=== PATIENT | female | born 1945 | race Caucasian/White ===

== ENCOUNTER 2020-04-07 14:49 | Outpatient (CLI) | payer MEDICARE, SELFPAY ==
[2020-04-07 17:56] LABS: Basophils # 0.2 10^3/uL (0.0-0.1); Basophils % 1.3 %; Eosinophils # 0.4 10^3/uL (0.0-0.8); Eosinophils % 3.7 %; Hematocrit 55.7 % (37.0-47.0); Lymphocytes # 3.6 10^3/uL (0.8-4.8); Lymphocytes % 29.5 %; Mean Corpuscular HGB Conc 30.5 g/dL (30.0-36.0); Mean Corpuscular Hemoglobin 27.9 pg (28.0-34.0); Mean Corpuscular Volume 91.3 fL (81-99); Mean Platelet Volume 11.3 fL (7.4-10.4); Monocytes # 1.1 10^3/uL (0.2-0.9); Monocytes % 9.5 %; Neutrophils # 6.68 10^3/uL (1.8-7.7); Neutrophils % 55.3 %; Nucleated Red Blood Cells % 0.2 %; Platelet Count 758 10^3/cmm (130-400); Red Cell Distribution Width 18.5 % (12.1-15.1); White Blood Count 12.1 10^3/uL (4.0-10.0)
[2020-04-07 18:11] LABS: Alanine Aminotransferase 17 U/L (0-33); Albumin Level 4.2 g/dL (3.5-5.2); Alkaline Phosphatase 81 IU/L (35-105); Anion Gap 15.2 (5-19); Aspartate Amino Transferase 22 U/L (0-32); Blood Urea Nitrogen 20 mg/dL (8-23); Calcium 9.5 mg/dL (8.5-10.5); Carbon Dioxide 25 mmol/L (22-29); Chloride 106 mmol/L (98-107); Globulin 3.1 g/dL (1.3-4.6); Glucose 84 mg/dL (65-115); Osmolality Calculated 290 mOsm/kg (285-295); Potassium 4.2 mmol/L (3.5-5.1); Sodium 142 mmol/L (136-145); Total Bilirubin 0.2 mg/dL (0.15-1.2); Total Protein 7.3 g/dL (6.6-8.7); Uric Acid 3.4 mg/dL (2.4-5.7)
--- NOTE | 2020-04-07 18:39 | ONC CON_ITS ---
Dr. Oliver New Patient Note Patient: Jessi Williamson Unit #: [id number]: 1945 Dicatated By: Howard Oliver M.D.Date of Visit: Apr 07, 2020 Onc MED New Patient/Consult Referring Physician: AYAAN Dunn Chief Complaint: Polycythemia. History of Present Illness: This is a 70 year-old woman with known polycythemia rubra vera. The patient indicates that her polycythemia was initially diagnosed about 2 1/2 years ago when she had presented with an acute right hemispheric stroke. According to her , her platelet count was around 2.4 million. She was treated with hydroxyurea, and she also had multiple phlebotomies. She indicates that she had a total of 12 strokes. I do not have any of those records available. However, she had then stopped taking the hydroxyurea and some of her other medications 6 or 7 months ago because she just was not feeling good generally. She has been feeling much better after stopping the medications. However, on a follow-up visit on 03/03/2020 her CBC showed significantly elevated blood counts with hemoglobin 17.2 g and hematocrit 55%, white blood cell count 16,300, and platelet count 810,000. Comprehensive metabolic profile at that time showed normal renal function with BUN 17 and creatinine 0.89 mg/dL. The potassium was slightly elevated at 5.2 mmol/L. The bilirubin and liver enzymes were normal. She was recommended to restart the hydroxyurea at 1500 mg daily. She actually started taking it 1 week ago at 1000 mg daily. She also has been taking allopurinol 300 mg daily. She says she has been feeling really good, though she does get tired. She has pretty much normal activity. Her ECOG score is 0. She has good appetite and her weight is been stable. She does not have fever, night sweats, or hot flashes. She had antibiotic therapy for sinus infection about a month ago. She indicates that her voice has been hoarse for the past 3 weeks. She does not complain of shortness of breath or cough. She sometimes has a little pressure in her chest. She has not been having nausea. She has occasional acid reflux. She also reports having occasional diarrhea. She has urinary frequency and nocturia, and she also has some urgency with occasional incontinence. She has no significant joint or bone pain, but recently she has been having muscle cramps in her legs. She does not complain of headache or dizziness. She has no focal neurologic symptoms. She has had a sore on her right foot, initially treated with antibiotic. More recently she was prescribed a steroid cream. She has not been aware of any abnormal bruising or bleeding. Past Medical History: Her medical history includes anxiety, aortic thrombus, hyperlipidemia, hypertension, multiple pulmonary nodules, osteoarthritis, osteoporosis, and restless leg syndrome. She has history of basal cell skin cancer, history of colon polyps, history of multiple strokes, and history of pulmonary embolism. Past Surgical History: Her surgical/procedural history includes appendectomy, cholecystectomy, hysterectomy/bilateral salpingectomy-oophorectomy, splenectomy, and tubal ligation. Medications: Allopurinol 1 Tablet (of 300 mg) Oral daily, Amoxicillin 1 Capsule (of 500 mg) Oral daily, Hydroxyurea 3 Capsule (of 500 mg) Oral daily, Lidocaine 1 (5 %) Ointment Topical b.i.d. Allergies: adhesive, Morphine Sulfate, and Simvastatin. Social History: Ms. Williamson is and she is retired. She is a non-smoker. She does not drink alcohol. Family History: Both parents with heart disease, father at age 75 and mother at age 85. A brother with metastatic cancer, primary source unknown to the patient. A sister of liver cancer. Her other sister has had skin cancer. A daughter has been treated for colon cancer. Review Of Symptoms: Constitutional - She has been feeling really good her energy is good but she does have to rest in the middle of the day. She has normal activity without restrictions. Her appetite is good and weight is stable. No fever, night sweats, or hot flashes. ECOG score is 0, Eyes - No change in vision, ENMT - No hearing loss or tinnitus. She was recently treated for sinus congestion/drainage with antibiotics. No mouth sores. No sore throat or difficulty swallowing. She has been having hoarseness for 3 weeks, Hematologic/Lymphatic - No abnormal bruising or bleeding, Respiratory - No shortness of breath. No cough. No pleuritic pain or hemoptysis, Cardiovascular - She sometimes has a little pressure in her chest. No palpitations, Gastrointestinal - No nausea or vomiting. She has occasional acid reflux depending on what she eats. No diarrhea or constipation. No blood in the stool or black stools, Genitourinary (F) - No dysuria or hematuria. She has urinary frequency both day and night. She has urgency with occasional incontinence, Musculoskeletal - She has no significant joint or bone pain, but she does have osteoporosis. She recently has been having muscle cramps in her legs, Integumentary - She has a skin eruption on the right ankle/foot, Neurologic - No headache or dizziness. No numbness or tingling. No other focal neurologic symptoms, Psychiatric - No anxiety or depression. No insomnia. Vital Signs: Performed on Apr 07, 2020 15:33: 0, 33.29 (HIGH), 1.84 sq.m, 62.00 in, 99 %, 85 /min, 24 /min, 158/99 mm(hg) (HIGH), 98.0 F (LOW), and 182.0 lbs (HIGH). Physical Examination: Constitutional - She looks pretty good generally, Eyes - Sclerae nonicteric. Conjunctivae clear, ENMT - No lesions noted in the oral cavity, Neck - No mass or thyromegaly, Hematologic/Lymphatic - No cervical, clavicular, or axillary adenopathy, Respiratory - Lungs are clear with good air movement bilaterally, Cardiovascular - Heart rhythm is regular. There is no murmur, gallop, or rub noted. There is no carotid bruit noted, Abdomen - Soft and non-tender. Liver is not enlarged. There is no abdominal mass or ascites noted and there is no inguinal adenopathy, Back/Spine - No spine or CVA tenderness noted, Extremities - Mild swelling at the ankles, worse on the right. The calf circumference is symmetric. Dorsalis pedis pulses are palpable bilaterally. There are scattered, small purpuric lesions on the arms, Integumentary - There is some patchy erythema on the lateral aspect of the right ankle and on the medial aspect of the right foot. It appears consistent with eczema. There are no suspicious skin lesions noted, Neurologic - She does not appear to have any significant residual neurologic deficit. Impression: 1. Patient with polycythemia rubra vera, initially diagnosed approximately 2-1/2 years ago. She had presented with an acute right hemispheric stroke in association with a markedly elevated platelet count. 2. She was treated initially with hydroxyurea and phlebotomies, and she had good recovery of her neurologic deficit. 3. She presents now with pancytosis after stopping hydroxyurea 6 or 7 months ago. She does not appear to be symptomatic with it. Her other medical illnesses include: 4. Hypertension. 5. Hyperlipidemia. 6. Degenerative arthritis. 7. Osteoporosis. 8. Restless leg syndrome. 9. She has undergone removal of basal cell skin cancer from the left leg, and she has been treated for actinic keratoses. 10. She reports having had multiple subsequent strokes. 11. She has a history of pulmonary embolism. 12. She has a history of colonic polyps. 13. She has remote history of splenectomy for traumatic injury. Plan: The laboratory findings were reviewed with the patient and we discussed the clinical implications. Her blood counts have become elevated since stopping the hydroxyurea, and if left untreated she will have a high risk for further stroke or other thromboembolism. She has been reluctant to take the medication because she felt much better after stopping it. She is willing, for now, to continue the hydroxyurea at 1000 mg daily and she also will continue the allopurinol at 300 mg daily. I did advise her to also take 81 mg of aspirin daily as long she is not having excessive bruising. I will recheck her laboratory studies today to include CBC, comprehensive metabolic profile, LDH level, and uric acid level. I also want to verify the JAK2 gene mutation status. I will then have her monitor blood counts weekly. The hydroxyurea dosage can be adjusted accordingly and I also will have her restart phlebotomies as indicated. If he does not tolerate the hydroxyurea, she will be given the option to try transitioning to ruxolitinib. I will tentatively plan a follow-up visit in 1 month. In the meantime, she also will be given a prescription for furosemide 20 mg daily to take as needed for the swelling. Signed By: Howard Oliver M.D. <<Signature on File>>
[2020-04-07 20:36] LABS: Lactate Dehydrogenase 310 U/L (135-214)
== END 2020-04-07 14:50 | disposition home or self-care (01) ==
LOC: ONCMED 15:03
PROVIDERS: PCP Family Medicine; Visit Provider Internal Medicine Medical Oncology
DX: D45 Polycythemia vera (principal); M25.471 Effusion, right ankle; M25.472 Effusion, left ankle; I10 Essential (primary) hypertension; E78.5 Hyperlipidemia, unspecified; M19.90 Unspecified osteoarthritis, unspecified site; M81.0 Age-related osteoporosis without current pathological fracture; G25.81 Restless legs syndrome; Z79.899 Other long term (current) drug therapy; Z85.828 Personal history of other malignant neoplasm of skin; Z86.73 Personal history of transient ischemic attack (TIA), and cerebral infarction without residual deficits; Z86.711 Personal history of pulmonary embolism; Z90.81 Acquired absence of spleen
CPT/HCPCS: 36415; 80053; 81270; 83615; 84550; 85025; 99205

== ENCOUNTER 2020-04-15 13:33 | Outpatient (CLI) | payer MEDICARE, SELFPAY ==
[2020-04-15 14:16] LABS: Basophils # 0.1 10^3/uL (0.0-0.1); Basophils % 1.2 %; Eosinophils # 0.3 10^3/uL (0.0-0.8); Eosinophils % 2.9 %; Hematocrit 54.4 % (37.0-47.0); Hemoglobin 16.9 g/dL (11.5-15.3); Lymphocytes # 3.7 10^3/uL (0.8-4.8); Lymphocytes % 32.9 %; Mean Corpuscular HGB Conc 31.1 g/dL (30.0-36.0); Mean Corpuscular Hemoglobin 28.4 pg (28.0-34.0); Mean Corpuscular Volume 91.3 fL (81-99); Monocytes # 0.8 10^3/uL (0.2-0.9); Monocytes % 6.7 %; Neutrophils # 6.27 10^3/uL (1.8-7.7); Neutrophils % 55.9 %; Nucleated Red Blood Cells % 0.4 %; Platelet Count 873 10^3/cmm (130-400); Red Blood Count 5.96 10^6/uL (4.1-5.3); Red Cell Distribution Width 19.3 % (12.1-15.1); White Blood Count 11.2 10^3/uL (4.0-10.0)
== END 2020-04-15 13:34 | disposition home or self-care (01) ==
LOC: ONCMED 13:37
PROVIDERS: PCP Family Medicine; Visit Provider Internal Medicine Medical Oncology
DX: D45 Polycythemia vera (principal); E78.5 Hyperlipidemia, unspecified; I10 Essential (primary) hypertension
CPT/HCPCS: 36415; 85025; 99195

== ENCOUNTER 2020-04-27 12:42 | Outpatient (CLI) | payer MEDICARE, SELFPAY ==
--- NOTE | 2020-04-27 12:50 | XRR_ITS ---
PROCEDURE INFORMATION: Exam: XR Right Foot Complete Exam date and time: 04/27/2020 1:14 PM Age: 75 years old Clinical indication: Pain; Patient HX: Sore on right foot TECHNIQUE: Imaging protocol: XR Right foot. Views: 3 or more views. COMPARISON: No relevant prior studies available. FINDINGS: Bones/joints: There is no evidence for acute fracture or malalignment. There is an osteophyte off the posterior calcaneus. Soft tissues: Normal. XR/XR foot RT min 3V* [id number] IMPRESSION: There are no acute concerning abnormalities.
== END 2020-04-27 12:43 | disposition home or self-care (01) ==
PROVIDERS: PCP Family Medicine; Visit Provider Podiatrist Foot & Ankle Surgery
DX: M79.671 Pain in right foot (principal)
CPT/HCPCS: 73630

== ENCOUNTER 2020-05-12 13:54 | Outpatient (CLI) | payer MEDICARE, SELFPAY ==
[2020-05-12] MEDS: sodium chloride 0.9% 500 ML IV (15:35)
[2020-05-12 15:52] LABS: Blood Urea Nitrogen 16 mg/dL (8-23); Calcium 8.7 mg/dL (8.5-10.5); Carbon Dioxide 23 mmol/L (22-29); Chloride 104 mmol/L (98-107); Glucose 114 mg/dL (65-115); Osmolality Calculated 281 mOsm/kg (285-295); Sodium 137 mmol/L (136-145)
[2020-05-12 15:53] LABS: Anion Gap 14.4 (5-19); Potassium 4.4 mmol/L (3.5-5.1)
--- NOTE | 2020-05-16 13:12 | ONC FU_ITS ---
Dr. Oliver Patient Follow-Up Note Patient: Jessi Williamson Unit #: [id number]: 1945 Dicatated By: Howard Oliver M.D.Date of Visit:May 12, 2020 Onc Med Follow-up/Prog Note Chief Complaint: Polycythemia. 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 I had seen her initially on 04/07/2020. Her polycythemia had been diagnosed about 2 1/2 earlier when she had presented with an acute right hemispheric stroke. According to her , her platelet count was around 2.4 million. She was treated with hydroxyurea, and she also had multiple phlebotomies. She apparently had multiple strokes during that time. However, approximately 6-7 months prior to the visit she had stopped taking the hydroxyurea and some of her other medications because she just was not feeling good generally. She had been feeling much better after stopping the medications. However, a CBC on 03/03/2020 had shown significantly elevated blood counts with hemoglobin 17.2 g and hematocrit 55%, white blood cell count 16,300, and platelet count 810,000. Comprehensive metabolic profile at that time showed normal renal function with BUN 17 and creatinine 0.89 mg/dL. The potassium was slightly elevated at 5.2 mmol/L. The bilirubin and liver enzymes were normal. She was recommended to restart the hydroxyurea at 1500 mg daily. At the time of her visit in March she had been taking the hydroxyurea for 1 week at a dose of 1000 mg daily. She also had been taking allopurinol 300 mg daily. Her CBC showed hemoglobin elevated at 17.0 g with hematocrit 55.7%. The white blood cell count was 12,100 and the platelet count was 758,000. Her LDH was mildly elevated at 310/214 U/L. Her JAK2 mutation study was positive for the JAK2 V617F mutation. She continued hydroxyurea at 1000 mg daily, and she was scheduled to have a phlebotomy. Her other medical illnesses include hypertension, anemia, degenerative arthritis, osteoporosis, and restless leg syndrome. She has a history of pulmonary embolism and she also has a history of colonic polyps. She has remote history of having undergone splenectomy for traumatic injury. She is a non-smoker. She is seen for a follow-up visit. She says she has been sick for 3 weeks, to point that she is almost too weak to get out of bed. During that time she has had lower back pain and she also has had pain in the substernal area. Her ECOG score is 3. She says she cannot eat very much. Her weight is down 7 pounds. She has not had fever or night sweats. She has not had sore mouth or sore throat. She does report having a slight cough and she has had some shortness of breath. She does not complain of nausea. She has had some diarrhea. She has urinary frequency and nocturia. She has no other joint or bone pain. She does not complain of headache or dizziness. She has no focal neurologic symptoms. Medications: Allopurinol 1 Tablet (of 300 mg) Oral daily, Hydroxyurea 3 Capsule (of 500 mg) Oral daily, Lasix 1 Tablet (of 20 mg) Oral PRN, Lidocaine 1 (5 %) Ointment Topical b.i.d. Allergies: adhesive, Morphine Sulfate, and Simvastatin. Review of Systems: Constitutional - She has not been feeling good for the last 3 weeks. She is mostly laying in bed. Her appetite is poor and her weight is down 7 pounds from last visit. No fever, night sweats, or hot flashes. ECOG score is 3, ENMT - No sinus congestion/drainage. No mouth sores. No sore throat or difficulty swallowing, Hematologic/Lymphatic - No abnormal bruising or bleeding, Respiratory - She feels short of breath. She has a slight cough. No pleuritic pain or hemoptysis, Cardiovascular - No angina pain. No palpitations, Gastrointestinal - No nausea or vomiting. No heartburn or acid reflux. She has had diarrhea. No constipation. No blood in the stool or black stools, Genitourinary (F) - No dysuria or hematuria. She has urinary frequency both day and night. No urgency or incontinence, Musculoskeletal - She has some lower back pain. No other joint or bone pain, Integumentary - No skin complications, Neurologic - No headache or dizziness. No numbness or tingling. No other focal neurologic symptoms, Psychiatric - No anxiety or depression. No insomnia. Vital Signs: Performed on May 12, 2020 14:04 Height - 62.00 in Weight - 175.2 lbs (LOW) BSA - 1.81 sq.m BMI - 32.04 (HIGH) Temperature - 98.2 F (LOW) Pulse - 108 /min (HIGH) Respiration - 18 /min BP - 143/87 mm(hg) (HIGH) O2 Sat - 93 % (LOW) Pain - 4 Physical Examination: Constitutional - She appears generally weak, but not acutely ill, Eyes - Sclerae nonicteric. Conjunctivae clear, ENMT - No lesions noted in the oral cavity, Hematologic/Lymphatic - No cervical, clavicular, or axillary adenopathy, Respiratory - Lungs are clear with good air movement bilaterally, Cardiovascular - Heart rhythm is regular. There is no murmur, gallop, or rub noted, Abdomen - Soft. Liver is not enlarged. There is no abdominal mass or ascites noted and there is no inguinal adenopathy, Extremities - No edema, Neurologic - No focal neurologic deficits noted. Lab/Imaging: Test performed on May 10, 2020 10:18 WBC 8.8 10^9/L RBC 5.84 10^12/L HGB 16.8 g/dL HCT 57.6 % MCV 98.6 fl MCH 28.8 pg MCHC 29.2 g/dL RDW 25.1 % Platelet Count 509 10^9/L MPV 11.7 fL Neutrophils (Gran) 4.59 10^9/L Lymphocytes 2.69 10^9/L Monocytes 1.30 10^9/L Eosinophils 0.08 10^9/L Basophils 0.09 10^9/L Manual Lymphocytes 31 % Manual Monocytes 15 % Manual Eosinophils 1 % Manual Basophils 1 % Impression: 1. Patient with polycythemia rubra vera, initially diagnosed approximately 2-1/2 years ago. She had presented with an acute right hemispheric stroke in association with a markedly elevated platelet count. 2. She was treated initially with hydroxyurea and phlebotomies, and she had good recovery of her neurologic deficit. 3. She was seen in March 2020 with pancytosis after stopping hydroxyurea 6 or 7 months earlier. She did not appear to be overtly symptomatic at that time. Her other medical illnesses include: 4. Hypertension. 5. Hyperlipidemia. 6. Degenerative arthritis. 7. Osteoporosis. 8. Restless leg syndrome. 9. She has undergone removal of basal cell skin cancer from the left leg, and she has been treated for actinic keratoses. 10. She reports having had multiple subsequent strokes. 11. She has a history of pulmonary embolism. 12. She has a history of colonic polyps. 13. She has remote history of splenectomy for traumatic injury. Following her visit on 04/07/2020 she had initially continued hydroxyurea at 1000 mg daily. She was scheduled for a phlebotomy, and the hydroxyurea dosage was subsequently increased to 1500 mg daily. She has since then been feeling much worse generally with severe weakness and lower back pain. She is also had some pain in the substernal area and she has had shortness of breath with a slight cough. She also has had diarrhea. It is uncertain to what extent any of these symptoms may be related to the polycythemia or to the hydroxyurea. She does not have any changes on her EKG, and she had no significant drop in her oxygen saturation with activity. Plan: She is going to have a phlebotomy today, and she will be given 500 mL normal saline for hydration. She will continue hydroxyurea at 1500 mg daily and she will continue aspirin prophylaxis. She will be scheduled for a follow-up visit in 1 week. Signed By: Howard Oliver M.D. <<Signature on File>>
== END 2020-05-12 13:55 | disposition home or self-care (01) ==
LOC: ONCMED 13:57
PROVIDERS: PCP Family Medicine; Visit Provider Internal Medicine Medical Oncology
DX: D45 Polycythemia vera (principal); R05 Cough; R06.02 Shortness of breath; R19.7 Diarrhea, unspecified; Z79.899 Other long term (current) drug therapy; Z86.73 Personal history of transient ischemic attack (TIA), and cerebral infarction without residual deficits; Z79.82 Long term (current) use of aspirin; I10 Essential (primary) hypertension; E78.5 Hyperlipidemia, unspecified; M19.90 Unspecified osteoarthritis, unspecified site; M81.0 Age-related osteoporosis without current pathological fracture; G25.81 Restless legs syndrome; Z85.828 Personal history of other malignant neoplasm of skin; Z86.711 Personal history of pulmonary embolism; Z90.81 Acquired absence of spleen
CPT/HCPCS: 80048; 99195; 99214; J7040

== ENCOUNTER 2020-06-21 08:11 | Outpatient (CLI) | payer MEDICARE, MEDICAID, SELFPAY ==
[2020-06-21 09:12] LABS: Basophils # 0.1 10^3/uL (0.0-0.1); Basophils % 0.8 %; Eosinophils # 0.1 10^3/uL (0.0-0.8); Eosinophils % 1.5 %; Hematocrit 43.5 % (37.0-47.0); Hemoglobin 14.1 g/dL (11.5-15.3); Lymphocytes # 2.7 10^3/uL (0.8-4.8); Lymphocytes % 43.1 %; Mean Corpuscular HGB Conc 32.4 g/dL (30.0-36.0); Mean Corpuscular Hemoglobin 32.5 pg (28.0-34.0); Mean Corpuscular Volume 100.2 fL (81-99); Mean Platelet Volume 10.6 fL (7.4-10.4); Monocytes # 0.7 10^3/uL (0.2-0.9); Neutrophils % 42.1 %; Nucleated Red Blood Cells % 0.3 %; Platelet Count 438 10^3/cmm (130-400); Red Blood Count 4.34 10^6/uL (4.1-5.3); Red Cell Distribution Width 27.4 % (12.1-15.1); White Blood Count 6.2 10^3/uL (4.0-10.0)
--- NOTE | 2020-06-22 06:55 | ONC FU_ITS ---
Dr. Oliver Patient Follow-Up Note Patient: Jessi Williamson Unit #: [id number]: 1945 Dicatated By: Howard Oliver M.D.Date of Visit:Jun 21, 2020 Onc Med Follow-up/Prog Note Chief Complaint: Polycythemia. 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 I had seen her initially on 04/07/2020. Her polycythemia had been diagnosed about 2 1/2 earlier when she had presented with an acute right hemispheric stroke. According to her , her platelet count was around 2.4 million. She was treated with hydroxyurea, and she also had multiple phlebotomies. She apparently had multiple strokes during that time. However, approximately 6-7 months prior to the visit she had stopped taking the hydroxyurea and some of her other medications because she just was not feeling good generally. She had been feeling much better after stopping the medications. However, a CBC on 03/03/2020 had shown significantly elevated blood counts with hemoglobin 17.2 g and hematocrit 55%, white blood cell count 16,300, and platelet count 810,000. Comprehensive metabolic profile at that time showed normal renal function with BUN 17 and creatinine 0.89 mg/dL. The potassium was slightly elevated at 5.2 mmol/L. The bilirubin and liver enzymes were normal. She was recommended to restart the hydroxyurea at 1500 mg daily. At the time of her visit in March she had been taking the hydroxyurea for 1 week at a dose of 1000 mg daily. She also had been taking allopurinol 300 mg daily. Her CBC showed hemoglobin elevated at 17.0 g with hematocrit 55.7%. The white blood cell count was 12,100 and the platelet count was 758,000. Her LDH was mildly elevated at 310/214 U/L. Her JAK2 mutation study was positive for the JAK2 V617F mutation. She continued hydroxyurea at 1000 mg daily, and she was scheduled to have a phlebotomy. Her other medical illnesses include hypertension, anemia, degenerative arthritis, osteoporosis, and restless leg syndrome. She has a history of pulmonary embolism and she also has a history of colonic polyps. She has remote history of having undergone splenectomy for traumatic injury. She is a non-smoker. INTERIM HISTORY: I had seen her for a follow-up visit on 05/12/2020. At that time she had multiple new complaints and she was pretty ill. I was uncertain of the cause. Her blood count was still significantly elevated, and she did have a phlebotomy. The following day she was informed that a COVID test which had been done by her primary care provider a day earlier came back positive. Her symptoms at that time had included diarrhea for several weeks, and she apparently also was found to have E. coli enteritis. She did show gradual recovery with antibiotic therapy and supportive measures. She continued hydroxyurea. She is seen now for a follow-up visit. She is feeling much better. She still has some fatigue, but her energy is getting better, and she is doing light work now. ECOG score is 1. Her appetite is good. She has regained 9 pounds. She has not had fever. She occasionally feels hot and sweaty. Her breathing is pretty good. She occasionally has cough, mainly when she is lying down at night. She does not complain of nausea. She sometimes has acid reflux. Her bowels are pretty good, though she still occasionally has loose stools and abdominal cramping. She has urinary frequency and urgency, and she has some associated incontinence. She has no significant joint or bone pain. She has no focal neurologic symptoms. Medications: Allopurinol 1 Tablet (of 300 mg) Oral daily, Hydroxyurea 3 Capsule (of 500 mg) Oral daily, Lasix 1 Tablet (of 20 mg) Oral PRN, Lidocaine 1 (5 %) Ointment Topical b.i.d. Allergies: adhesive, Morphine Sulfate, and Simvastatin. Review of Systems: Constitutional - She is feeling pretty good now. Her energy is getting better. She still has some fatigue, but she is doing light work. Her appetite is good. She has regained 9 pounds. She has not had fever. She occasionally feels hot and sweaty. ECOG score is 1, ENMT - She has a little sinus drainage. No mouth sores. No sore throat or difficulty swallowing, Hematologic/Lymphatic - No abnormal bruising or bleeding, Respiratory - Her breathing is pretty good. She does have occasional cough, mainly when she is lying down at night. No pleuritic pain or hemoptysis, Cardiovascular - No angina pain. No palpitations, Gastrointestinal - No nausea or vomiting. She sometimes has acid reflux. She still occasionally has loose stools and she occasionally has abdominal cramping. No blood in the stool or black stools, Genitourinary (F) - No dysuria or hematuria. She has urinary frequency and urgency and she has associated incontinence, Musculoskeletal - No joint or bone pain, Integumentary - No skin rash, Neurologic - No headache or dizziness. No numbness or tingling. No other focal neurologic symptoms, Psychiatric - No anxiety or depression. She is not sleeping very well at night. Vital Signs: Performed on Jun 21, 2020 10:32 Height - 62.00 in Weight - 179.0 lbs (HIGH) BSA - 1.82 sq.m BMI - 32.74 (HIGH) Temperature - 97.4 F (LOW) Pulse - 101 /min (HIGH) Respiration - 18 /min BP - 171/78 mm(hg) (HIGH) O2 Sat - 97 % Pain - 0 Physical Examination: Constitutional - She looks pretty good generally, Eyes - Sclerae nonicteric. Conjunctivae clear, ENMT - No lesions noted in the oral cavity, Hematologic/Lymphatic - No cervical, clavicular, or axillary adenopathy, Respiratory - Lungs are clear with good air movement bilaterally, Cardiovascular - Heart rhythm is regular. There is no murmur, gallop, or rub noted, Abdomen - Soft. Liver is not enlarged. There is no abdominal mass or ascites noted and there is no inguinal adenopathy, Extremities - No edema, Integumentary - She is fair skinned. She has multiple seborrheic keratoses and she also appears to have a few actinic lesions, Neurologic - No focal neurologic deficits noted. Lab/Imaging: Test performed on Jun 21, 2020 08:26 WBC 6.2 10 3/uL RBC 4.34 10 6/uL HGB 14.1 g/dL HCT 43.5 % MCV 100.2 fL MCH 32.5 pg MCHC 32.4 g/dL RDW 27.4 % Platelet Count 438 10 3/cmm MPV 10.6 fL Neutrophils 2.60 10 3/uL Lymphocytes 2.7 10 3/uL Monocytes 0.7 10 3/uL Eosinophils 0.1 10 3/uL Basophils 0.1 10 3/uL Neutrophil % 42.1 % Lymphocyte % 43.1 % Monocyte % 12.0 % Eosinophil % 1.5 % Basophils % 0.8 % NRBC % 0.3 % Impression: 1. Patient with polycythemia rubra vera, initially diagnosed approximately 2-1/2 years ago. She had presented with an acute right hemispheric stroke in association with a markedly elevated platelet count. 2. She was treated initially with hydroxyurea and phlebotomies, and she had good recovery of her neurologic deficit. 3. She was seen in March 2020 with pancytosis after stopping hydroxyurea 6 or 7 months earlier. She did not appear to be overtly symptomatic at that time. Her other medical illnesses include: 4. Hypertension. 5. Hyperlipidemia. 6. Degenerative arthritis. 7. Osteoporosis. 8. Restless leg syndrome. 9. She has undergone removal of basal cell skin cancer from the left leg, and she has been treated for actinic keratoses. 10. She reports having had multiple subsequent strokes. 11. She has a history of pulmonary embolism. 12. She has a history of colonic polyps. 13. She has remote history of splenectomy for traumatic injury. Following her visit on 04/07/2020 she had initially continued hydroxyurea at 1000 mg daily. She was scheduled for a phlebotomy, and the hydroxyurea dosage was subsequently increased to 1500 mg daily. At her follow-up visit on 05/12/2020 she had multiple complaints, and she was quite ill at that point. Her blood counts were still significantly elevated, and she did have a phlebotomy. She subsequently was found to be COVID-19 positive and she apparently also was found to have E. coli enteritis. She has improved on antibiotic therapy and supportive treatment measures. Her blood counts have come down quite nicely on the hydroxyurea. Her hematocrit now is just slightly above target range and her platelet count is just slightly elevated. Plan: For now she will continue hydroxyurea 500 mg 3 times daily. Blood counts will be monitored weekly. As her blood counts continue to decline, her hydroxyurea dosage will be reduced. She will continue aspirin prophylaxis 325 mg daily. I will see her again in 3 months, or sooner as needed. Signed By: Howard Oliver M.D. <<Signature on File>>
== END 2020-06-21 08:12 | disposition home or self-care (01) ==
LOC: ONCMED 08:14
PROVIDERS: PCP Family Medicine; Visit Provider Internal Medicine Medical Oncology
DX: D45 Polycythemia vera (principal); I10 Essential (primary) hypertension; E78.5 Hyperlipidemia, unspecified; M19.90 Unspecified osteoarthritis, unspecified site; M81.0 Age-related osteoporosis without current pathological fracture; G25.81 Restless legs syndrome; Z85.828 Personal history of other malignant neoplasm of skin; Z86.73 Personal history of transient ischemic attack (TIA), and cerebral infarction without residual deficits; Z86.711 Personal history of pulmonary embolism; Z86.010 Personal history of colon polyps; Z90.81 Acquired absence of spleen; Z79.899 Other long term (current) drug therapy
CPT/HCPCS: 36415; 85025; 99214

== ENCOUNTER 2020-09-27 10:45 | Outpatient (CLI) | payer MEDICARE, MEDICAID, SELFPAY ==
[2020-09-27 11:27] LABS: Basophils # 0.1 10^3/uL (0.0-0.1); Basophils % 1.3 %; Eosinophils # 0.1 10^3/uL (0.0-0.8); Eosinophils % 2.1 %; Hematocrit 41.9 % (37.0-47.0); Hemoglobin 14.1 g/dL (11.5-15.3); Lymphocytes # 2.9 10^3/uL (0.8-4.8); Lymphocytes % 46.3 %; Mean Corpuscular HGB Conc 33.7 g/dL (30.0-36.0); Mean Corpuscular Volume 127.7 fL (81-99); Mean Platelet Volume 10.8 fL (7.4-10.4); Monocytes # 0.5 10^3/uL (0.2-0.9); Monocytes % 7.5 %; Neutrophils # 2.65 10^3/uL (1.8-7.7); Neutrophils % 42.5 %; Nucleated Red Blood Cells % 0 %; Platelet Count 383 10^3/cmm (130-400); Red Blood Count 3.28 10^6/uL (4.1-5.3); Red Cell Distribution Width 12.7 % (12.1-15.1); White Blood Count 6.2 10^3/uL (4.0-10.0)
[2020-09-27 11:50] LABS: Alanine Aminotransferase 22 U/L (0-33); Albumin Level 4.1 g/dL (3.5-5.2); Alkaline Phosphatase 81 IU/L (35-105); Aspartate Amino Transferase 26 U/L (0-32); Blood Urea Nitrogen 18 mg/dL (8-23); Calcium 9.2 mg/dL (8.5-10.5); Carbon Dioxide 26 mmol/L (22-29); Chloride 106 mmol/L (98-107); Globulin 2.9 g/dL (1.3-4.6); Glucose 142 mg/dL (65-115); Osmolality Calculated 296 mOsm/kg (285-295); Sodium 141 mmol/L (136-145); Total Bilirubin 0.5 mg/dL (0.15-1.2)
[2020-09-27 11:52] LABS: Anion Gap 13.1 (5-19); Lactate Dehydrogenase 223 U/L (135-214); Potassium 4.1 mmol/L (3.5-5.1)
--- NOTE | 2020-10-01 16:32 | ONC FU_ITS ---
Dr. Oliver Patient Follow-Up Note Patient: Jessi Williamson Unit #: [id number]: 1945 Dicatated By: Howard Oliver M.D.Date of Visit:Sep 27, 2020 Onc Med Follow-up/Prog Note Chief Complaint: Polycythemia. 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 I had seen her initially on 04/07/2020. Her polycythemia had been diagnosed about 2 1/2 earlier when she had presented with an acute right hemispheric stroke. According to her , her platelet count was around 2.4 million. She was treated with hydroxyurea, and she also had multiple phlebotomies. She apparently had multiple strokes during that time. However, approximately 6-7 months prior to the visit she had stopped taking the hydroxyurea and some of her other medications because she just was not feeling good generally. She had been feeling much better after stopping the medications. However, a CBC on 03/03/2020 had shown significantly elevated blood counts with hemoglobin 17.2 g and hematocrit 55%, white blood cell count 16,300, and platelet count 810,000. Comprehensive metabolic profile at that time showed normal renal function with BUN 17 and creatinine 0.89 mg/dL. The potassium was slightly elevated at 5.2 mmol/L. The bilirubin and liver enzymes were normal. She was recommended to restart the hydroxyurea at 1500 mg daily. At the time of her visit in March she had been taking the hydroxyurea for 1 week at a dose of 1000 mg daily. She also had been taking allopurinol 300 mg daily. Her CBC showed hemoglobin elevated at 17.0 g with hematocrit 55.7%. The white blood cell count was 12,100 and the platelet count was 758,000. Her LDH was mildly elevated at 310/214 U/L. Her JAK2 mutation study was positive for the JAK2 V617F mutation. She continued hydroxyurea at 1000 mg daily, and she was scheduled to have a phlebotomy. Her other medical illnesses include hypertension, anemia, degenerative arthritis, osteoporosis, and restless leg syndrome. She has a history of pulmonary embolism and she also has a history of colonic polyps. She has remote history of having undergone splenectomy for traumatic injury. She is a non-smoker. INTERIM HISTORY: I had seen her for a follow-up visit on 05/12/2020. At that time she had multiple new complaints and she was pretty ill. I was uncertain of the cause. Her blood count was still significantly elevated, and she did have a phlebotomy. The following day she was informed that a COVID test which had been done by her primary care provider a day earlier came back positive. Her symptoms at that time had included diarrhea for several weeks, and she apparently also was found to have E. coli enteritis. She did show gradual recovery with antibiotic therapy and with supportive measures. She continued hydroxyurea for the polycythemia. As of her follow-up visit on 06/21/2020, her blood counts were improving. She initially continued the hydroxyurea at 500 mg 3 times daily, but it was subsequently reduced to 500 mg twice daily. She is seen now for a follow-up visit. She has been feeling pretty good generally, though she continues to have fatigue and she reports that her body shuts down a few times a day, and she does has to lie down and rest. She is doing light work, though. Her ECOG score is 1. She has good appetite. She has no fever or night sweats. She has had no mouth sores. She has no shortness of breath, cough, or chest pain. She sometimes has acid reflux and she also occasionally has pain in the lower abdominal area. Bowel function has been okay. She does have some urinary frequency with urgency and occasional incontinence. She is also been having pain in her left lower back area. She has no focal neurologic symptoms. Medications: Allopurinol 1 Tablet (of 300 mg) Oral daily, Hydroxyurea 3 Capsule (of 500 mg) Oral daily, Lasix 1 Tablet (of 20 mg) Oral PRN, Lidocaine 1 (5 %) Ointment Topical b.i.d. Allergies: adhesive, Morphine Sulfate, and Simvastatin. Vital Signs: Performed on Sep 27, 2020 12:45 Height - 62.00 in Weight - 178.2 lbs (LOW) BSA - 1.82 sq.m BMI - 32.59 (HIGH) Temperature - 98.6 F Pulse - 90 /min Respiration - 18 /min BP - 133/75 mm(hg) O2 Sat - 98 % Pain - 0 Physical Examination: Constitutional - She looks pretty good generally, Eyes - Sclerae nonicteric. Conjunctivae clear, ENMT - No lesions noted in the oral cavity, Hematologic/Lymphatic - No cervical, clavicular, or axillary adenopathy, Respiratory - Lungs are clear with good air movement bilaterally, Cardiovascular - Heart rhythm is regular. There is no murmur, gallop, or rub noted, Abdomen - Soft. Liver is not enlarged. There is no abdominal mass or ascites noted and there is no inguinal adenopathy, Back/Spine - No spine or CVA tenderness noted, Extremities - No edema, Neurologic - No focal neurologic deficits noted. Lab/Imaging: Test performed on Sep 27, 2020 11:08 LDH (Total) 223 U/L Sodium 141 mmol/L Potassium 4.1 mmol/L Chloride 106 mmol/L CO2 26 mmol/L Anion Gap 13.1 BUN 18 mg/dL Creatinine 0.7 mg/dL Cr Clearance (Est) 88.61 mL/min Glucose 142 mg/dL Osmolality - Calculated 296 mOsm/kg Calcium 9.2 mg/dL Protein, Total 7.0 g/dL Albumin 4.1 g/dL Globulin 2.9 g/dL Bilirubin, Total 0.5 mg/dL ALT (SGPT) 22 U/L AST (SGOT) 26 U/L Alkaline Phosphatase 81 IU/L WBC 6.2 10 3/uL RBC 3.28 10 6/uL HGB 14.1 g/dL HCT 41.9 % MCV 127.7 fL MCH 43.0 pg MCHC 33.7 g/dL RDW 12.7 % Platelet Count 383 10 3/cmm MPV 10.8 fL Neutrophils 2.65 10 3/uL Lymphocytes 2.9 10 3/uL Monocytes 0.5 10 3/uL Eosinophils 0.1 10 3/uL Basophils 0.1 10 3/uL Neutrophil % 42.5 % Lymphocyte % 46.3 % Monocyte % 7.5 % Eosinophil % 2.1 % Basophils % 1.3 % NRBC % 0 % Historic Problem List: .1. Polycythemia rubra vera, presenting initially with an acute right hemispheric stroke in association with a markedly elevated platelet count. She was treated initially with hydroxyurea and phlebotomies, and she had good recovery of her neurologic deficit. 2. She was seen here in March 2020 with pancytosis after having stopped hydroxyurea 6 or 7 months earlier. She did not appear to be overtly symptomatic at that time. 3. She was diagnosed with Covid 19 virus infection in April 2020. She had uneventful recovery. 4. Hypertension. 5. Hyperlipidemia. 6. Degenerative arthritis. 7. Osteoporosis. 8. Restless leg syndrome. 9. She has undergone removal of basal cell skin cancer from the left leg, and she has been treated for actinic keratoses. 10. She reports having had multiple subsequent strokes. 11. She has a history of pulmonary embolism. 12. She has a history of colonic polyps. 13. She has remote history of splenectomy for traumatic injury. Problems Addressed with this Encounter and Plan: Polycythemia rubra vera, KAROL V617F mutation positive. I had seen her initially in March 2020. At that point she restarted treatment with hydroxyurea. She has been showing good response, with blood counts now in normal range at a dosage of 500 mg twice daily. She continues, though, to have significant fatigue. It is uncertain to what extent that may be related to her treatment. She also is having low back pain and voiding symptoms, I will check urinalysis/culture to rule out urinary tract infection, I also will check a KUB to rule out any obvious renal stone. I will have her stop allopurinol now. She will continue the hydroxyurea, but with the dosage further reduced to 500 mg daily. Her blood count will be checked monthly. I will see her again in 3 months. Signed By: Howard Oliver M.D. <<Signature on File>>
== END 2020-09-27 10:46 | disposition home or self-care (01) ==
PROVIDERS: PCP Family Medicine; Visit Provider Internal Medicine Medical Oncology
DX: D45 Polycythemia vera (principal); M54.5 Low back pain; R35.0 Frequency of micturition; R39.15 Urgency of urination; R53.83 Other fatigue; I10 Essential (primary) hypertension; E78.5 Hyperlipidemia, unspecified; M81.0 Age-related osteoporosis without current pathological fracture; Z79.899 Other long term (current) drug therapy; Z86.73 Personal history of transient ischemic attack (TIA), and cerebral infarction without residual deficits
CPT/HCPCS: 36415; 80053; 83615; 85025; 99214

== ENCOUNTER 2020-09-27 13:22 | Outpatient (CLI) | payer MEDICARE, MEDICAID, SELFPAY ==
--- NOTE | 2020-09-27 13:33 | XRR_ITS ---
PROCEDURE INFORMATION: Exam: XR Abdomen, 1 View Exam date and time: 09/27/2020 1:42 PM Age: 75 years old Clinical indication: Abdominal pain; Generalized; Patient HX: Abd pain lateral to dorsal; Additional info: Back pain TECHNIQUE: Imaging protocol: XR of the abdomen. Views: Frontal supine view of the abdomen. 1 View. COMPARISON: CT abdomen pelvis w con* [id number] 02/02/2017 2:36 PM FINDINGS: Gastrointestinal tract: There is stool throughout the colon. No bowel dilation. Bones/joints: Unremarkable. XR/XR KUB [id number] IMPRESSION: There are no acute concerning abnormalities.
[2020-09-27 14:06] LABS: Add Urine Microscopic? NO
[2020-09-27 14:14] LABS: Bilirubin Urine Neg (Negative); Blood Urine Neg (Negative); Glucose Urine UA Norm (Normal); Ketones Urine Negative (Negative); Leukocyte Esterase Urine Negative (Negative); Nitrate Urine Negative (Negative); Protein Urine Neg (Negative); Specific Gravity, Urine 1.015 (1.005-1.030); Urine Appearance Clear (CLEAR); Urine Color Yellow (Yellow); Urobilinogen Urine 4 mg/dL (Negative); pH Urine 6.5 (5-7)
== END 2020-09-27 13:23 | disposition home or self-care (01) ==
LOC: RAD 13:28
PROVIDERS: PCP Family Medicine; Visit Provider Internal Medicine Medical Oncology
DX: M54.9 Dorsalgia, unspecified (principal); R10.9 Unspecified abdominal pain
CPT/HCPCS: 74018; 81003; 87086

== ENCOUNTER 2020-11-10 15:52 | Outpatient (CLI) | payer MEDICARE, MEDICAID, SELFPAY ==
[2020-11-10 16:40] LABS: Basophils # 0.1 10^3/uL (0.0-0.1); Basophils % 0.9 %; Eosinophils # 0.4 10^3/uL (0.0-0.8); Eosinophils % 3.4 %; Hematocrit 42.7 % (37.0-47.0); Hemoglobin 14.1 g/dL (11.5-15.3); Lymphocytes # 3.7 10^3/uL (0.8-4.8); Lymphocytes % 34.5 %; Mean Corpuscular Hemoglobin 39.8 pg (28.0-34.0); Mean Corpuscular Volume 120.6 fL (81-99); Mean Platelet Volume 10.8 fL (7.4-10.4); Monocytes # 1.2 10^3/uL (0.2-0.9); Monocytes % 11.6 %; Neutrophils # 5.19 10^3/uL (1.8-7.7); Neutrophils % 49.1 %; Nucleated Red Blood Cells % 0 %; Platelet Count 478 10^3/cmm (130-400); Red Blood Count 3.54 10^6/uL (4.1-5.3); Red Cell Distribution Width 12.6 % (12.1-15.1); White Blood Count 10.6 10^3/uL (4.0-10.0)
== END 2020-11-10 15:53 | disposition home or self-care (01) ==
PROVIDERS: PCP Family Medicine; Visit Provider Internal Medicine Medical Oncology
DX: D45 Polycythemia vera (principal)
CPT/HCPCS: 85025

== ENCOUNTER 2020-12-30 11:36 | Outpatient (CLI) | payer MEDICARE, SELFPAY ==
[2020-12-30 12:50] LABS: Basophils # 0.1 10^3/uL (0.0-0.1); Basophils % 1.5 %; Eosinophils # 0.4 10^3/uL (0.0-0.8); Eosinophils % 4.2 %; Hematocrit 44.5 % (37.0-47.0); Hemoglobin 14.7 g/dL (11.5-15.3); Lymphocytes # 3.3 10^3/uL (0.8-4.8); Mean Corpuscular Hemoglobin 37.4 pg (28.0-34.0); Mean Corpuscular Volume 113.2 fL (81-99); Mean Platelet Volume 11.2 fL (7.4-10.4); Monocytes # 1.1 10^3/uL (0.2-0.9); Monocytes % 11.4 %; Neutrophils % 46.5 %; Nucleated Red Blood Cells % 0 %; Platelet Count 552 10^3/cmm (130-400); Red Blood Count 3.93 10^6/uL (4.1-5.3); Red Cell Distribution Width 13.2 % (12.1-15.1); White Blood Count 9.3 10^3/uL (4.0-10.0)
[2020-12-30 13:06] LABS: Alanine Aminotransferase 14 U/L (0-33); Albumin Level 4.2 g/dL (3.5-5.2); Alkaline Phosphatase 82 IU/L (35-105); Anion Gap 13.2 (5-19); Aspartate Amino Transferase 16 U/L (0-32); Blood Urea Nitrogen 15 mg/dL (8-23); Calcium 8.9 mg/dL (8.5-10.5); Carbon Dioxide 26 mmol/L (22-29); Chloride 105 mmol/L (98-107); Globulin 2.9 g/dL (1.3-4.6); Glucose 86 mg/dL (65-115); Lactate Dehydrogenase 198 U/L (135-214); Osmolality Calculated 290 mOsm/kg (285-295); Potassium 4.2 mmol/L (3.5-5.1); Sodium 140 mmol/L (136-145); Total Bilirubin 0.4 mg/dL (0.15-1.2); Total Protein 7.1 g/dL (6.6-8.7)
--- NOTE | 2021-01-01 13:27 | ONC FU_ITS ---
Dr. Oliver Patient Follow-Up Note Patient: Jessi Williamson Unit #: [id number]: 1945 Dicatated By: Howard Oliver M.D.Date of Visit:Dec 30, 2020 Onc Med Follow-up/Prog Note Chief Complaint: Polycythemia. 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 I had seen her initially on 04/07/2020. Her polycythemia had been diagnosed about 2 1/2 earlier when she had presented with an acute right hemispheric stroke. According to her , her platelet count was around 2.4 million. She was treated with hydroxyurea, and she also had multiple phlebotomies. She apparently had multiple strokes during that time. However, approximately 6-7 months prior to the visit she had stopped taking the hydroxyurea and some of her other medications because she just was not feeling good generally. She had been feeling much better after stopping the medications. However, a CBC on 03/03/2020 had shown significantly elevated blood counts with hemoglobin 17.2 g and hematocrit 55%, white blood cell count 16,300, and platelet count 810,000. Comprehensive metabolic profile at that time showed normal renal function with BUN 17 and creatinine 0.89 mg/dL. The potassium was slightly elevated at 5.2 mmol/L. The bilirubin and liver enzymes were normal. She was recommended to restart the hydroxyurea at 1500 mg daily. At the time of her visit in March she had been taking the hydroxyurea for 1 week at a dose of 1000 mg daily. She also had been taking allopurinol 300 mg daily. Her CBC showed hemoglobin elevated at 17.0 g with hematocrit 55.7%. The white blood cell count was 12,100 and the platelet count was 758,000. Her LDH was mildly elevated at 310/214 U/L. Her JAK2 mutation study was positive for the JAK2 V617F mutation. She continued hydroxyurea at 1000 mg daily, and she was scheduled to have a phlebotomy. Her other medical illnesses include hypertension, anemia, degenerative arthritis, osteoporosis, and restless leg syndrome. She has a history of pulmonary embolism and she also has a history of colonic polyps. She has remote history of having undergone splenectomy for traumatic injury. She is a non-smoker. INTERIM HISTORY: I had seen her for a follow-up visit on 05/12/2020. At that time she had multiple new complaints and she was pretty ill. I was uncertain of the cause. Her blood count was still significantly elevated, and she did have a phlebotomy. The following day she was informed that a COVID test which had been done by her primary care provider a day earlier came back positive. Her symptoms at that time had included diarrhea for several weeks, and she apparently also was found to have E. coli enteritis. She did show gradual recovery with antibiotic therapy and with supportive measures. She continued hydroxyurea for the polycythemia. As of her follow-up visit on 06/21/2020, her blood counts were improving. She initially continued the hydroxyurea at 500 mg 3 times daily, but during followup the dosage was reduced to 500 mg twice daily and ultimately to 500 mg once daily. She has been feeling pretty good generally, though she says her energy is not too awful good. Most of that she attributes to the fact that she has been having pain across her lower back. The pain mainly occurs with activity. She says she is okay when she is sitting or lying. She has undergone evaluation, and thus far it is just being managed symptomatically. It does limit her activity, though. Her ECOG score is 1. She has good appetite. She has no fever, night sweats, or itching. She has had no mouth sores. She still has some shortness of breath following the COVID-19 virus infection. She does not complain of cough, though, and she does not have chest pain. She has had some acid reflux. She has also had problems with constipation, but management has been problematic she has tended to get diarrhea with MiraLAX. She has no complaints. She has no other joint or bone pain. She does not complain of headache or dizziness, and she has no focal neurologic symptoms. Medications: Allopurinol 1 Tablet (of 300 mg) Oral daily, Hydroxyurea 3 Capsule (of 500 mg) Oral daily, Lasix 1 Tablet (of 20 mg) Oral PRN, Lidocaine 1 (5 %) Ointment Topical b.i.d. Allergies: adhesive, Morphine Sulfate, and Simvastatin. Vital Signs: Performed on Dec 30, 2020 13:35 Height - 62.00 in Weight - 184 lbs (HIGH) BSA - 1.84 sq.m BMI - 33.65 (HIGH) Temperature - 97.1 F (LOW) Pulse - 93 /min Respiration - 18 /min BP - 155/85 mm(hg) (HIGH) O2 Sat - 97 % Pain - 5 Physical Examination: Constitutional - She looks pretty good generally, Eyes - Sclerae nonicteric. Conjunctivae clear, ENMT - No lesions noted in the oral cavity, Hematologic/Lymphatic - No cervical, clavicular, or axillary adenopathy, Respiratory - Lungs are clear with good air movement bilaterally, Cardiovascular - Heart rhythm is regular. There is a II/ systolic murmur. There is no gallop or rub noted, Abdomen - Soft. Liver is not enlarged. There is no abdominal mass or ascites noted and there is no inguinal adenopathy, Extremities - No edema. Dorsalis pedis pulses are palpable bilaterally, Neurologic - No focal neurologic deficits noted. Lab/Imaging: Test performed on Dec 30, 2020 12:20 LDH (Total) 198 U/L Sodium 140 mmol/L Potassium 4.2 mmol/L Chloride 105 mmol/L CO2 26 mmol/L Anion Gap 13.2 BUN 15 mg/dL Creatinine 0.7 mg/dL Cr Clearance (Est) 91.49 mL/min Glucose 86 mg/dL Osmolality - Calculated 290 mOsm/kg Calcium 8.9 mg/dL Protein, Total 7.1 g/dL Albumin 4.2 g/dL Globulin 2.9 g/dL Bilirubin, Total 0.4 mg/dL ALT (SGPT) 14 U/L AST (SGOT) 16 U/L Alkaline Phosphatase 82 IU/L WBC 9.3 10 3/uL RBC 3.93 10 6/uL HGB 14.7 g/dL HCT 44.5 % MCV 113.2 fL MCH 37.4 pg MCHC 33.0 g/dL RDW 13.2 % Platelet Count 552 10 3/cmm MPV 11.2 fL Neutrophils 4.30 10 3/uL Lymphocytes 3.3 10 3/uL Monocytes 1.1 10 3/uL Eosinophils 0.4 10 3/uL Basophils 0.1 10 3/uL Neutrophil % 46.5 % Lymphocyte % 36.0 % Monocyte % 11.4 % Eosinophil % 4.2 % Basophils % 1.5 % NRBC % 0 % Problem List: .1. Polycythemia rubra vera, presenting initially with an acute right hemispheric stroke in association with a markedly elevated platelet count. She was treated initially with hydroxyurea and phlebotomies, and she had good recovery of her neurologic deficit. 2. She was seen here in March 2020 with pancytosis after having stopped hydroxyurea 6 or 7 months earlier. She did not appear to be overtly symptomatic at that time. 3. She was diagnosed with Covid 19 virus infection in April 2020. She had uneventful recovery. 4. Hypertension. 5. Hyperlipidemia. 6. Degenerative arthritis. 7. Osteoporosis. 8. Restless leg syndrome. 9. She has undergone removal of basal cell skin cancer from the left leg, and she has been treated for actinic keratoses. 10. She reports having had multiple subsequent strokes. 11. She has a history of pulmonary embolism. 12. She has a history of colonic polyps. 13. She has remote history of splenectomy for traumatic injury. 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 I had seen her initially in March 2020. At that point she restarted treatment with hydroxyurea. She has been showing good response, with blood counts in normal range at a dosage of 500 mg twice daily. Her dosage was subsequently decreased to 500 mg daily. With that her blood counts are all slightly elevated again. She is having significant lower back pain, which is almost certainly unrelated. She is otherwise stable clinically. I will have her increase the hydroxyurea now to 1000 mg on Mondays and and 500 mg all other days. I will see her again in 3 months. Signed By: Howard Oliver M.D. <<Signature on File>>
== END 2020-12-30 11:37 | disposition home or self-care (01) ==
LOC: ONCMED 11:40
PROVIDERS: PCP Family Medicine; Visit Provider Internal Medicine Medical Oncology
DX: D45 Polycythemia vera (principal); I10 Essential (primary) hypertension; E78.5 Hyperlipidemia, unspecified; M81.0 Age-related osteoporosis without current pathological fracture; G25.81 Restless legs syndrome; L57.0 Actinic keratosis; Z86.16 Personal history of COVID-19; Z86.73 Personal history of transient ischemic attack (TIA), and cerebral infarction without residual deficits; Z86.711 Personal history of pulmonary embolism; Z86.010 Personal history of colon polyps; Z85.828 Personal history of other malignant neoplasm of skin; Z79.899 Other long term (current) drug therapy
CPT/HCPCS: 36415; 80053; 83615; 85025; 99214

== ENCOUNTER 2021-04-04 14:02 | Outpatient (CLI) | payer MEDICARE, SELFPAY ==
[2021-04-04 15:08] LABS: Basophils # 0.1 10^3/uL (0.0-0.1); Basophils % 0.8 %; Eosinophils # 0.2 10^3/uL (0.0-0.8); Eosinophils % 1.6 %; Hematocrit 44.2 % (37.0-47.0); Hemoglobin 14.5 g/dL (11.5-15.3); Lymphocytes # 3.7 10^3/uL (0.8-4.8); Lymphocytes % 34.7 %; Mean Corpuscular HGB Conc 32.8 g/dL (30.0-36.0); Mean Corpuscular Hemoglobin 36.2 pg (28.0-34.0); Mean Corpuscular Volume 110.2 fL (81-99); Mean Platelet Volume 11.4 fL (7.4-10.4); Monocytes # 1.2 10^3/uL (0.2-0.9); Monocytes % 11.4 %; Neutrophils # 5.41 10^3/uL (1.8-7.7); Neutrophils % 50.8 %; Nucleated Red Blood Cells % 0 %; Platelet Count 471 10^3/cmm (130-400); Red Blood Count 4.01 10^6/uL (4.1-5.3); Red Cell Distribution Width 15.2 % (12.1-15.1); White Blood Count 10.7 10^3/uL (4.0-10.0)
[2021-04-04 15:22] LABS: Alanine Aminotransferase 12 U/L (0-33); Albumin Level 3.8 g/dL (3.5-5.2); Alkaline Phosphatase 75 IU/L (35-105); Anion Gap 15.2 (5-19); Aspartate Amino Transferase 15 U/L (0-32); Blood Urea Nitrogen 19 mg/dL (8-23); Calcium 8.8 mg/dL (8.5-10.5); Carbon Dioxide 24 mmol/L (22-29); Chloride 106 mmol/L (98-107); Globulin 2.9 g/dL (1.3-4.6); Glucose 89 mg/dL (65-115); Lactate Dehydrogenase 194 U/L (135-214); Osmolality Calculated 294 mOsm/kg (285-295); Potassium 4.2 mmol/L (3.5-5.1); Sodium 141 mmol/L (136-145); Total Bilirubin 0.2 mg/dL (0.15-1.2); Total Protein 6.7 g/dL (6.6-8.7)
--- NOTE | 2021-04-06 07:33 | ONC FU_ITS ---
Dr. Oliver Patient Follow-Up Note Patient: Jessi Williamson Unit #: [id number]: 1945 Dicatated By: Howard Oliver M.D.Date of Visit:Apr 04, 2021 Onc Med Follow-up/Prog Note Chief Complaint: Polycythemia. 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 I had seen her initially on 04/07/2020. Her polycythemia had been diagnosed about 2 1/2 earlier when she had presented with an acute right hemispheric stroke. According to her , her platelet count was around 2.4 million. She was treated with hydroxyurea, and she also had multiple phlebotomies. She apparently had multiple strokes during that time. However, approximately 6-7 months prior to the visit she had stopped taking the hydroxyurea and some of her other medications because she just was not feeling good generally. She had been feeling much better after stopping the medications. However, a CBC on 03/03/2020 had shown significantly elevated blood counts with hemoglobin 17.2 g and hematocrit 55%, white blood cell count 16,300, and platelet count 810,000. Comprehensive metabolic profile at that time showed normal renal function with BUN 17 and creatinine 0.89 mg/dL. The potassium was slightly elevated at 5.2 mmol/L. The bilirubin and liver enzymes were normal. She was recommended to restart the hydroxyurea at 1500 mg daily. At the time of her visit in March she had been taking the hydroxyurea for 1 week at a dose of 1000 mg daily. She also had been taking allopurinol 300 mg daily. Her CBC showed hemoglobin elevated at 17.0 g with hematocrit 55.7%. The white blood cell count was 12,100 and the platelet count was 758,000. Her LDH was mildly elevated at 310/214 U/L. Her JAK2 mutation study was positive for the JAK2 V617F mutation. She continued hydroxyurea at 1000 mg daily, and she was scheduled to have a phlebotomy. Her other medical illnesses include hypertension, anemia, degenerative arthritis, osteoporosis, and restless leg syndrome. She has a history of pulmonary embolism and she also has a history of colonic polyps. She has remote history of having undergone splenectomy for traumatic injury. She is a non-smoker. INTERIM HISTORY: I had seen her for a follow-up visit on 05/12/2020. At that time she had multiple new complaints and she was pretty ill. I was uncertain of the cause. Her blood count was still significantly elevated, and she did have a phlebotomy. The following day she was informed that a COVID test which had been done by her primary care provider a day earlier came back positive. Her symptoms at that time had included diarrhea for several weeks, and she apparently also was found to have E. coli enteritis. She did show gradual recovery with antibiotic therapy and with supportive measures. She continued hydroxyurea for the polycythemia. As of her follow-up visit on 06/21/2020, her blood counts were improving. She initially continued the hydroxyurea at 500 mg 3 times daily, but during followup the dosage was reduced to 500 mg twice daily and ultimately to 500 mg once daily. As of her follow-up visit on 12/30/2020 she increased the hydroxyurea to 500 mg twice daily on Mondays and and she continued 500 mg once daily on all other days. Along with that she has continued prophylaxis with aspirin 325 mg daily. She is seen for a follow-up visit. She continues to complain that her energy is terrible. She says she does okay for a while but then her body just shuts off and she feels so weak that she has to go to bed. She does feel better after resting, though. She is still doing light work. ECOG score is 1. Her appetite has been okay. She has no fever or night sweats. She has had no mouth sores. She has been having shortness of breath and she also has had some vague chest discomfort. She has not had cough, pleuritic pain, or hemoptysis. She has no GI or complaints other than occasional acid reflux. She has some mild discomfort in the lower back area. She has no other joint or bone pain. She does not complain of headache or dizziness, and she has no focal neurologic symptoms. She says she has been having a little bit of depression. Medications: Allopurinol 1 Tablet (of 300 mg) Oral daily, Hydroxyurea 3 Capsule (of 500 mg) Oral daily, Lasix 1 Tablet (of 20 mg) Oral PRN, Lidocaine 1 (5 %) Ointment Topical b.i.d. Allergies: adhesive, Morphine Sulfate, and Simvastatin. Vital Signs: Performed on Apr 04, 2021 16:13 Height - 62.00 in Weight - 186.6 lbs (HIGH) BSA - 1.86 sq.m BMI - 34.13 (HIGH) Temperature - 98.2 F (LOW) Pulse - 103 /min (HIGH) Respiration - 18 /min BP - 138/83 mm(hg) O2 Sat - 98 % Pain - 5 Fatigue - 9 Physical Examination: Constitutional - She looks pretty good generally, Eyes - Sclerae nonicteric. Conjunctivae clear, ENMT - No lesions noted in the oral cavity, Hematologic/Lymphatic - No cervical, clavicular, or axillary adenopathy, Respiratory - Lungs are clear with slightly diminished air movement bilaterally, Cardiovascular - Heart rhythm is regular. There is a II/ systolic murmur. There is no gallop or rub noted, Abdomen - Soft. Liver is not enlarged. There is no abdominal mass or ascites noted and there is no inguinal adenopathy, Extremities - Slight edema. Dorsalis pedis pulses are palpable bilaterally, Neurologic - No focal neurologic deficits noted. Lab/Imaging: Test performed on Apr 04, 2021 14:30 LDH (Total) 194 U/L Sodium 141 mmol/L Potassium 4.2 mmol/L Chloride 106 mmol/L CO2 24 mmol/L Anion Gap 15.2 BUN 19 mg/dL Creatinine 0.8 mg/dL Cr Clearance (Est) 79.94 mL/min Glucose 89 mg/dL Osmolality - Calculated 294 mOsm/kg Calcium 8.8 mg/dL Protein, Total 6.7 g/dL Albumin 3.8 g/dL Globulin 2.9 g/dL Bilirubin, Total 0.2 mg/dL ALT (SGPT) 12 U/L AST (SGOT) 15 U/L Alkaline Phosphatase 75 IU/L WBC 10.7 10 3/uL RBC 4.01 10 6/uL HGB 14.5 g/dL HCT 44.2 % MCV 110.2 fL MCH 36.2 pg MCHC 32.8 g/dL RDW 15.2 % Platelet Count 471 10 3/cmm MPV 11.4 fL Neutrophils 5.41 10 3/uL Lymphocytes 3.7 10 3/uL Monocytes 1.2 10 3/uL Eosinophils 0.2 10 3/uL Basophils 0.1 10 3/uL Neutrophil % 50.8 % Lymphocyte % 34.7 % Monocyte % 11.4 % Eosinophil % 1.6 % Basophils % 0.8 % NRBC % 0 % Problem List: 1. Polycythemia rubra vera, presenting initially with an acute right hemispheric stroke in association with a markedly elevated platelet count. She was treated initially with hydroxyurea and phlebotomies, and she had good recovery of her neurologic deficit. 2. She was seen here in March 2020 with pancytosis after having stopped hydroxyurea 6 or 7 months earlier. She did not appear to be overtly symptomatic at that time. 3. She was diagnosed with COVID-19 virus infection in April 2020. She had uneventful recovery. 4. Hypertension. 5. Hyperlipidemia. 6. Degenerative arthritis. 7. Osteoporosis. 8. Restless leg syndrome. 9. She has undergone removal of basal cell skin cancer from the left leg, and she has been treated for actinic keratoses. 10. She reports having had multiple subsequent strokes. 11. She has a history of pulmonary embolism. 12. She has a history of colonic polyps. 13. She has remote history of splenectomy for traumatic injury. 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 I had seen her initially in March 2020. At that point she restarted treatment with hydroxyurea. She has been showing good response, with blood counts in normal range at a dosage of 500 mg twice daily. Her dosage was then decreased to 500 mg daily but subsequently increased to 1000 mg on Mondays and and 500 mg all other days. Her blood counts have since then remained mildly elevated. She does not appear to be having obvious side effects with the hydroxyurea, but she does report having episodes of weakness, severe enough that she has to lie down in bed. She also has shortness of breath and vague chest discomfort. The cause is uncertain. As a precaution, I am going to schedule her for CT pulmonary angiogram. In the meantime, she will increase hydroxyurea to 500 mg twice daily on Mondays, Wednesdays, and Fridays. She will continue 500 mg once daily all other days. I will see her again in 3 months, or sooner as needed. Signed By: Howard Oliver M.D. <<Signature on File>>
== END 2021-04-04 14:03 | disposition home or self-care (01) ==
PROVIDERS: PCP Family Medicine; Visit Provider Internal Medicine Medical Oncology
DX: D45 Polycythemia vera (principal); Z86.16 Personal history of COVID-19; I10 Essential (primary) hypertension; E78.5 Hyperlipidemia, unspecified; M19.90 Unspecified osteoarthritis, unspecified site; M81.0 Age-related osteoporosis without current pathological fracture; G25.81 Restless legs syndrome; Z86.73 Personal history of transient ischemic attack (TIA), and cerebral infarction without residual deficits; Z86.711 Personal history of pulmonary embolism; Z86.010 Personal history of colon polyps; Z79.899 Other long term (current) drug therapy
CPT/HCPCS: 36415; 80053; 83615; 85025; 99214

== ENCOUNTER 2021-04-13 08:23 | Outpatient (CLI) | payer MEDICARE, SELFPAY ==
--- NOTE | 2021-04-13 08:42 | CT_ITS ---
WS: [id number] Exam: CT angio chest PE protcl [id number] Date/Time of Exam: 04/13/2021 8:43 AM Reason For Exam: POLYCYTHEMIA, WEAKNESS, SHORTNESS OF BREATH DLP: 711.[address] scans at [facility] use at least one of these dose optimization techniques: automat ed exposure control; mA and/or kV adjustment per patient size (includes targeted exams where dose is matched to clinical indication); or iterative reconstruction. Comparison 10/27/2016. No evidence of acute PE. The thoracic aorta is normal in caliber. The airway is patent. No significan t mediastinal or hilar lymphadenopathy. No pleural or pericardial effusion. Stable 7 mm nodule in the left lower lobe. Stable subcentimeter nodules in the right middle lobe. The lungs are fully expanded , no infiltrates are seen. No destructive bone lesions. Old compression fracture of the upper T-spine . The chest wall is intact. There is hardware in the inferior aspect of the left scapula. CT/CT angio chest PE protcl [id number] IMPRESSION: 1. No sign of acute PE. 2. Stable appearing subcentimeter nodules in the left lower lobe and the right middle lobe. 3. No significant lymphadenopathy in the chest.
[2021-04-13] MEDS: iohexol 350 mg/mL 100 mL Btl IV (09:03)
== END 2021-04-13 08:24 | disposition home or self-care (01) ==
PROVIDERS: PCP Family Medicine; Visit Provider Internal Medicine Medical Oncology
DX: D45 Polycythemia vera (principal); R53.1 Weakness; R06.02 Shortness of breath
CPT/HCPCS: 71275; Q9967

== ENCOUNTER 2021-07-11 12:32 | Outpatient (CLI) | payer MEDICARE, SELFPAY ==
[2021-07-11 14:00] LABS: Basophils # 0.1 10^3/uL (0.0-0.1); Basophils % 0.7 %; Eosinophils # 0.1 10^3/uL (0.0-0.8); Eosinophils % 1.7 %; Hematocrit 43.3 % (37.0-47.0); Hemoglobin 14.5 g/dL (11.5-15.3); Lymphocytes # 3.1 10^3/uL (0.8-4.8); Lymphocytes % 42.2 %; Mean Corpuscular HGB Conc 33.5 g/dL (30.0-36.0); Mean Corpuscular Hemoglobin 38.2 pg (28.0-34.0); Mean Corpuscular Volume 113.9 fl (81-99); Mean Platelet Volume 11.2 fL (7.4-10.4); Monocytes # 0.7 10^3/uL (0.2-0.9); Neutrophils # 3.25 10^3/uL (1.8-7.7); Neutrophils % 44.8 %; Nucleated Red Blood Cells % 0 %; Platelet Count 392 10^3/cmm (130-400); Red Cell Distribution Width 15.9 % (12.1-15.1); White Blood Count 7.2 10^3/uL (4.0-10.0)
[2021-07-11 14:29] LABS: Alanine Aminotransferase 12 U/L (0-33); Alkaline Phosphatase 77 IU/L (35-105); Anion Gap 15.5 (5-19); Aspartate Amino Transferase 14 U/L (0-32); Blood Urea Nitrogen 19 mg/dL (8-23); Calcium 9.3 mg/dL (8.5-10.5); Carbon Dioxide 24 mmol/L (22-29); Chloride 101 mmol/L (98-107); Glucose 118 mg/dL (65-115); Lactate Dehydrogenase 217 U/L (135-214); Osmolality Calculated 287 mOsm/kg (285-295); Potassium 3.5 mmol/L (3.5-5.1); Sodium 137 mmol/L (136-145); Total Bilirubin 0.4 mg/dL (0.15-1.2)
[2021-07-11 15:06] LABS: Add Urine Microscopic? YES; Bilirubin Urine Neg (Negative); Blood Urine Neg (Negative); Glucose Urine UA Norm (Normal); Ketones Urine Negative (Negative); Leukocyte Esterase Urine Negative (Negative); Nitrate Urine Positive (Negative); Protein Urine Neg (Negative); Specific Gravity, Urine 1.025 (1.005-1.030); Urine Appearance Hazy (CLEAR); Urine Color Yellow (Yellow); Urobilinogen Urine Norm (Negative); pH Urine 5 (5-7)
[2021-07-11 15:07] LABS: Add Urine Culture? Yes; Bacteria Urine 4+ /hpf; RBC Urine 0-4 /hpf (0-2); WBC Urine 0-4 /hpf (0-5)
--- NOTE | 2021-07-11 19:38 | ONC FU_ITS ---
Dr. Oliver Patient Follow-Up Note Patient: Jessi Williamson Unit #: [id number]: 1945 Dicatated By: Howard Oliver M.D.Date of Visit:Jul 11, 2021 Onc Med Follow-up/Prog Note Chief Complaint: Polycythemia. 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 I had seen her initially on 04/07/2020. Her polycythemia had been diagnosed about 2 1/2 earlier when she had presented with an acute right hemispheric stroke. According to her , her platelet count was around 2.4 million. She was treated with hydroxyurea, and she also had multiple phlebotomies. She apparently had multiple strokes during that time. However, approximately 6-7 months prior to the visit she had stopped taking the hydroxyurea and some of her other medications because she just was not feeling good generally. She had been feeling much better after stopping the medications. However, a CBC on 03/03/2020 had shown significantly elevated blood counts with hemoglobin 17.2 g and hematocrit 55%, white blood cell count 16,300, and platelet count 810,000. Comprehensive metabolic profile at that time showed normal renal function with BUN 17 and creatinine 0.89 mg/dL. The potassium was slightly elevated at 5.2 mmol/L. The bilirubin and liver enzymes were normal. She was recommended to restart the hydroxyurea at 1500 mg daily. At the time of her visit in March she had been taking the hydroxyurea for 1 week at a dose of 1000 mg daily. She also had been taking allopurinol 300 mg daily. Her CBC showed hemoglobin elevated at 17.0 g with hematocrit 55.7%. The white blood cell count was 12,100 and the platelet count was 758,000. Her LDH was mildly elevated at 310/214 U/L. Her JAK2 mutation study was positive for the JAK2 V617F mutation. She continued hydroxyurea at 1000 mg daily, and she was scheduled to have a phlebotomy. Her other medical illnesses include hypertension, anemia, degenerative arthritis, osteoporosis, and restless leg syndrome. She has a history of pulmonary embolism and she also has a history of colonic polyps. She has remote history of having undergone splenectomy for traumatic injury. She is a non-smoker. INTERIM HISTORY: I had seen her for a follow-up visit on 05/12/2020. At that time she had multiple new complaints and she was pretty ill. I was uncertain of the cause. Her blood count was still significantly elevated, and she did have a phlebotomy. The following day she was informed that a COVID test which had been done by her primary care provider a day earlier came back positive. Her symptoms at that time had included diarrhea for several weeks, and she apparently also was found to have E. coli enteritis. She did show gradual recovery with antibiotic therapy and with supportive measures. She continued hydroxyurea for the polycythemia. As of her follow-up visit on 06/21/2020, her blood counts were improving. She initially continued the hydroxyurea at 500 mg 3 times daily, but during followup the dosage was reduced to 500 mg twice daily and ultimately to 500 mg once daily. As of her follow-up visit on 12/30/2020 she increased the hydroxyurea to 500 mg twice daily on Mondays and and she continued 500 mg once daily on all other days. Along with that she continued prophylaxis with aspirin 325 mg daily. As of her follow-up visit on 04/04/2021 her hematocrit and platelet count were both slightly above target range, and I did have her increase her hydroxyurea to 1000 mg daily on 3 days a week and 500 mg all other days. At that time she was complaining of shortness of breath and fatigue I also have her evaluated with CT pulmonary angiogram. It showed no evidence of pulmonary emboli or other acute pathology. She is seen for a follow-up visit. She has been feeling somewhat better generally, as she has had some improvement in her energy/activity tolerance. She is able to do light work. ECOG score is 1. She has good appetite. She does not have fever or night sweats. She has not had mouth sores. However, she does complain that some foods will go down all the way when she swallows and she ends up regurgitating. However, when she is stopped vomiting she then seems to be able to eat okay. She had a cough for a few days, but that has resolved. Her breathing is okay now, and she does not complain of chest pain. She does have some nausea and she also reports having quite a bit of heartburn. Bowel function has been okay. She has urinary frequency with urgency and incontinence. She has no significant joint or bone pain. She does not complain of headache. She occasionally has dizziness. She has no numbness/paresthesia or other focal neurologic symptoms. Medications: Allopurinol 1 Tablet (of 300 mg) Oral daily, Hydroxyurea 3 Capsule (of 500 mg) Oral daily, Lasix 1 Tablet (of 20 mg) Oral PRN, Lidocaine 1 (5 %) Ointment Topical b.i.d. Allergies: adhesive, Morphine Sulfate, and Simvastatin. Vital Signs: Performed on Jul 11, 2021 14:08 Height - 62.00 in Weight - 182 lbs (LOW) BSA - 1.84 sq.m BMI - 33.29 (HIGH) Temperature - 97.5 F (LOW) Pulse - 87 /min Respiration - 18 /min BP - 154/88 mm(hg) (HIGH) O2 Sat - 99 % Pain - 0 Fatigue - 4 Physical Examination: Constitutional - She looks pretty good generally, Eyes - Sclerae nonicteric. Conjunctivae clear, ENMT - No lesions noted in the oral cavity, Hematologic/Lymphatic - No cervical, clavicular, or axillary adenopathy, Respiratory - Lungs sound clear, Cardiovascular - Heart rhythm is regular. There is a II/ systolic murmur. There is no gallop or rub noted, Abdomen - Soft. Liver is not enlarged. There is no abdominal mass or ascites noted and there is no inguinal adenopathy, Extremities - Slight edema, Neurologic - No focal neurologic deficits noted. Lab/Imaging: Test performed on Jul 11, 2021 13:10 LDH (Total) 217 U/L Sodium 137 mmol/L Potassium 3.5 mmol/L Chloride 101 mmol/L CO2 24 mmol/L Anion Gap 15.5 BUN 19 mg/dL Creatinine 0.7 mg/dL Cr Clearance (Est) 89.1100 mL/min Glucose 118 mg/dL Osmolality - Calculated 287 mOsm/kg Calcium 9.3 mg/dL Protein, Total 7.0 g/dL Albumin 4.0 g/dL Globulin 3.0 g/dL Bilirubin, Total 0.4 mg/dL ALT (SGPT) 12 U/L AST (SGOT) 14 U/L Alkaline Phosphatase 77 IU/L WBC 7.2 10 3/uL RBC 3.80 10 6/uL HGB 14.5 g/dL HCT 43.3 % MCV 113.9 fl MCH 38.2 pg MCHC 33.5 g/dL RDW 15.9 % Platelet Count 392 10 3/cmm MPV 11.2 fL Neutrophils 3.25 10 3/uL Lymphocytes 3.1 10 3/uL Monocytes 0.7 10 3/uL Eosinophils 0.1 10 3/uL Basophils 0.1 10 3/uL Neutrophil % 44.8 % Lymphocyte % 42.2 % Monocyte % 10.0 % Eosinophil % 1.7 % Basophils % 0.7 % NRBC % 0 % Problem List: 1. Polycythemia rubra vera, presenting initially with an acute right hemispheric stroke in association with a markedly elevated platelet count. She was treated initially with hydroxyurea and phlebotomies, and she had good recovery of her neurologic deficit. 2. She was seen here in March 2020 with pancytosis after having stopped hydroxyurea 6 or 7 months earlier. She did not appear to be overtly symptomatic at that time. 3. She was diagnosed with COVID-19 virus infection in April 2020. She had uneventful recovery. 4. Hypertension. 5. Hyperlipidemia. 6. Degenerative arthritis. 7. Osteoporosis. 8. Restless leg syndrome. 9. She has undergone removal of basal cell skin cancer from the left leg, and she has been treated for actinic keratoses. 10. She reports having had multiple subsequent strokes. 11. She has a history of pulmonary embolism. 12. She has a history of colonic polyps. 13. She has remote history of splenectomy for traumatic injury. Problems Addressed with this Encounter and Plan: 1. 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 I had seen her initially in March 2020. At that point she restarted treatment with hydroxyurea. She has been showing good response, with blood counts in normal range at a dosage of 500 mg twice daily. Her dosage was then decreased to 500 mg daily but subsequently increased to 1000 mg on Mondays and and 500 mg all other days. As of her follow-up visit in March 2021 her blood counts had remained mildly elevated and her hydroxyurea dosage was increased to 1000 mg daily on 3 days a week and 500 mg all other days. On her current CBC all of her blood counts are in target range. She will continue hydroxyurea at the same dosage. She also continues aspirin prophylaxis. She will be scheduled for a follow-up visit in 3 months. 2. She has been having symptoms are suggestive of esophageal spasm and she also has acid reflux symptoms. She will be given a prescription for Protonix 40 mg daily. She will have further evaluation as indicated. 3. She is having increased urinary frequency with urgency/incontinence. I will check urinalysis and culture. She will have further treatment as indicated. Signed By: Howard Oliver M.D. <<Signature on File>>
== END 2021-07-11 12:33 | disposition home or self-care (01) ==
LOC: ONCMED 12:40
PROVIDERS: PCP Family Medicine; Visit Provider Internal Medicine Medical Oncology
DX: D45 Polycythemia vera (principal); I63.89 Other cerebral infarction; D61.818 Other pancytopenia; I10 Essential (primary) hypertension; E78.5 Hyperlipidemia, unspecified; M19.90 Unspecified osteoarthritis, unspecified site; M81.0 Age-related osteoporosis without current pathological fracture; G25.81 Restless legs syndrome; Z85.828 Personal history of other malignant neoplasm of skin; Z86.711 Personal history of pulmonary embolism; Z86.73 Personal history of transient ischemic attack (TIA), and cerebral infarction without residual deficits; Z86.010 Personal history of colon polyps; Z90.81 Acquired absence of spleen
CPT/HCPCS: 36415; 80053; 81001; 83615; 85025; 87077; 87086; 87186; 99214

== ENCOUNTER 2021-10-31 08:32 | Outpatient (CLI) | payer MEDICARE, SELFPAY ==
[2021-10-31 09:19] LABS: Basophils # 0.1 10^3/uL (0.0-0.1); Basophils % 1.3 %; Eosinophils # 0.2 10^3/uL (0.0-0.8); Eosinophils % 2.3 %; Hematocrit 42.3 % (37.0-47.0); Hemoglobin 13.9 g/dL (11.5-15.3); Lymphocytes % 38.3 %; Mean Corpuscular HGB Conc 32.9 g/dL (30.0-36.0); Mean Corpuscular Hemoglobin 38.5 pg (28.0-34.0); Mean Corpuscular Volume 117.2 fl (81-99); Mean Platelet Volume 11.3 fL (7.4-10.4); Monocytes # 0.9 10^3/uL (0.2-0.9); Monocytes % 11.7 %; Neutrophils # 3.56 10^3/uL (1.8-7.7); Neutrophils % 45.9 %; Nucleated Red Blood Cells % 0 %; Platelet Count 468 10^3/cmm (130-400); Red Blood Count 3.61 10^6/uL (4.1-5.3); Red Cell Distribution Width 13.8 % (12.1-15.1); White Blood Count 7.8 10^3/uL (4.0-10.0)
[2021-10-31 10:03] LABS: Alanine Aminotransferase 15 U/L (0-33); Albumin Level 4.1 g/dL (3.5-5.2); Alkaline Phosphatase 81 IU/L (35-105); Anion Gap 13.8 (5-19); Aspartate Amino Transferase 15 U/L (0-32); Blood Urea Nitrogen 14 mg/dL (8-23); Calcium 9.3 mg/dL (8.5-10.5); Carbon Dioxide 25 mmol/L (22-29); Chloride 105 mmol/L (98-107); Globulin 2.9 g/dL (1.3-4.6); Glucose 84 mg/dL (65-115); Osmolality Calculated 290 mOsm/kg (285-295); Potassium 3.8 mmol/L (3.5-5.1); Sodium 140 mmol/L (136-145); Total Bilirubin 0.3 mg/dL (0.15-1.2)
[2021-10-31 10:51] LABS: Lactate Dehydrogenase 187 U/L (135-214)
--- NOTE | 2021-11-01 10:02 | ONC FU_ITS ---
Dr. Oliver Patient Follow-Up Note Patient: Jessi Williamson Unit #: [id number]: 1945 Dicatated By: Howard Oliver M.D.Date of Visit:Oct 31, 2021 Onc Med Follow-up/Prog Note Chief Complaint: Polycythemia. 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 I had seen her initially on 04/07/2020. Her polycythemia had been diagnosed about 2 1/2 earlier when she had presented with an acute right hemispheric stroke. According to her , her platelet count was around 2.4 million. She was treated with hydroxyurea, and she also had multiple phlebotomies. She apparently had multiple strokes during that time. However, approximately 6-7 months prior to the visit she had stopped taking the hydroxyurea and some of her other medications because she just was not feeling good generally. She had been feeling much better after stopping the medications. However, a CBC on 03/03/2020 had shown significantly elevated blood counts with hemoglobin 17.2 g and hematocrit 55%, white blood cell count 16,300, and platelet count 810,000. Comprehensive metabolic profile at that time showed normal renal function with BUN 17 and creatinine 0.89 mg/dL. The potassium was slightly elevated at 5.2 mmol/L. The bilirubin and liver enzymes were normal. She was recommended to restart the hydroxyurea at 1500 mg daily. At the time of her visit in March she had been taking the hydroxyurea for 1 week at a dose of 1000 mg daily. She also had been taking allopurinol 300 mg daily. Her CBC showed hemoglobin elevated at 17.0 g with hematocrit 55.7%. The white blood cell count was 12,100 and the platelet count was 758,000. Her LDH was mildly elevated at 310/214 U/L. Her JAK2 mutation study was positive for the JAK2 V617F mutation. She continued hydroxyurea at 1000 mg daily, and she was scheduled to have a phlebotomy. Her other medical illnesses include hypertension, anemia, degenerative arthritis, osteoporosis, and restless leg syndrome. She has a history of pulmonary embolism and she also has a history of colonic polyps. She has remote history of having undergone splenectomy for traumatic injury. She is a non-smoker. INTERIM HISTORY: I had seen her for a follow-up visit on 05/12/2020. At that time she had multiple new complaints and she was pretty ill. I was uncertain of the cause. Her blood count was still significantly elevated, and she did have a phlebotomy. The following day she was informed that a COVID test which had been done by her primary care provider a day earlier came back positive. Her symptoms at that time had included diarrhea for several weeks, and she apparently also was found to have E. coli enteritis. She did show gradual recovery with antibiotic therapy and with supportive measures. She continued hydroxyurea for the polycythemia. As of her follow-up visit on 06/21/2020, her blood counts were improving. She initially continued the hydroxyurea at 500 mg 3 times daily, but during followup the dosage was reduced to 500 mg twice daily and ultimately to 500 mg once daily. As of her follow-up visit on 12/30/2020 she increased the hydroxyurea to 500 mg twice daily on Mondays and and she continued 500 mg once daily on all other days. Along with that she continued prophylaxis with aspirin 325 mg daily. As of her follow-up visit on 04/04/2021 her hematocrit and platelet count were both slightly above target range, and I did have her increase her hydroxyurea to 1000 mg daily on 3 days a week and 500 mg all other days. At that time she was complaining of shortness of breath and fatigue I also have her evaluated with CT pulmonary angiogram. It showed no evidence of pulmonary emboli or other acute pathology. She is seen for a follow-up visit. She has been feeling pretty good generally, though she says that she and her both just got over having COVID again. She does have some fatigue, but she is able to do housework as long she can rest. Her ECOG score is one. She has good appetite. She has no fever or night sweats. She has not had sore mouth or throat. She had cough with the COVID infection, but that is better now. She does not complain of shortness of breath or chest pain. She has no GI complaints other than some acid reflux, but she does not take her medication regularly. Bladder function remains adequate, though she does have occasional incontinence. She has some lower back pain which also limits her activity somewhat. She does not complain of headache or dizziness, and she has no focal neurologic symptoms. She has no abnormal bruising or bleeding. Medications: Allopurinol 1 Tablet (of 300 mg) Oral daily, Hydroxyurea 3 Capsule (of 500 mg) Oral daily, Lasix 1 Tablet (of 20 mg) Oral PRN, Lidocaine 1 (5 %) Ointment Topical b.i.d. Allergies: adhesive, Morphine Sulfate, and Simvastatin. Vital Signs: Performed on Oct 31, 2021 13:15 Height - 62.00 in Weight - 183.4 lbs (HIGH) BSA - 1.84 sq.m BMI - 33.54 (HIGH) Temperature - 97.1 F (LOW) Pulse - 105 /min (HIGH) Respiration - 18 /min BP - 156/81 mm(hg) (HIGH) O2 Sat - 97 % Pain - 0 Fatigue - 3 Physical Examination: Constitutional - She looks pretty good generally, Eyes - Sclerae nonicteric. Conjunctivae clear, ENMT - No lesions noted in the oral cavity, Hematologic/Lymphatic - No cervical, clavicular, or axillary adenopathy, Respiratory - Lungs sound clear, Cardiovascular - Heart rhythm is regular. There is no murmur, gallop, or rub noted, Abdomen - Soft. Liver is not enlarged. There is no abdominal mass or ascites noted and there is no inguinal adenopathy, Extremities - No edema, Neurologic - No focal neurologic deficits noted. Lab/Imaging: Test performed on Oct 31, 2021 08:50 LDH (Total) 187 U/L Sodium 140 mmol/L Potassium 3.8 mmol/L Chloride 105 mmol/L CO2 25 mmol/L Anion Gap 13.8 BUN 14 mg/dL Creatinine 0.6 mg/dL Cr Clearance (Est) 104.76 mL/min Glucose 84 mg/dL Osmolality - Calculated 290 mOsm/kg Calcium 9.3 mg/dL Protein, Total 7.0 g/dL Albumin 4.1 g/dL Globulin 2.9 g/dL Bilirubin, Total 0.3 mg/dL ALT (SGPT) 15 U/L AST (SGOT) 15 U/L Alkaline Phosphatase 81 IU/L WBC 7.8 10 3/uL RBC 3.61 10 6/uL HGB 13.9 g/dL HCT 42.3 % MCV 117.2 fl MCH 38.5 pg MCHC 32.9 g/dL RDW 13.8 % Platelet Count 468 10 3/cmm MPV 11.3 fL Neutrophils 3.56 10 3/uL Lymphocytes 3.0 10 3/uL Monocytes 0.9 10 3/uL Eosinophils 0.2 10 3/uL Basophils 0.1 10 3/uL Neutrophil % 45.9 % Lymphocyte % 38.3 % Monocyte % 11.7 % Eosinophil % 2.3 % Basophils % 1.3 % NRBC % 0 % Problem List: 1. Polycythemia rubra vera, presenting initially with an acute right hemispheric stroke in association with a markedly elevated platelet count. She was treated initially with hydroxyurea and phlebotomies, and she had good recovery of her neurologic deficit. 2. She was seen here in March 2020 with pancytosis after having stopped hydroxyurea 6 or 7 months earlier. She did not appear to be overtly symptomatic at that time. 3. She was diagnosed with COVID-19 virus infection in April 2020. She had uneventful recovery. 4. Hypertension. 5. Hyperlipidemia. 6. Degenerative arthritis. 7. Osteoporosis. 8. Restless leg syndrome. 9. She has undergone removal of basal cell skin cancer from the left leg, and she has been treated for actinic keratoses. 10. She reports having had multiple subsequent strokes. 11. She has a history of pulmonary embolism. 12. She has a history of colonic polyps. 13. She has remote history of splenectomy for traumatic injury. 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 I had seen her initially in March 2020. At that point she restarted treatment with hydroxyurea. She has had a good response. During subsequent follow-up she has required adjustments in her hydroxyurea dosage. Her blood counts currently are being controlled adequately with 500 mg of hydroxyurea twice daily on Mondays, Wednesdays, and Fridays and 500 mg once daily all other days. She continues treatment now at the same dosage and she also continues aspirin prophylaxis. She will be scheduled for a follow-up visit in 3 months. Signed By: Howard Oliver M.D. <<Signature on File>>
== END 2021-10-31 08:33 | disposition home or self-care (01) ==
LOC: ONCMED 08:39
PROVIDERS: PCP Family Medicine; Visit Provider Internal Medicine Medical Oncology
DX: D45 Polycythemia vera (principal); I10 Essential (primary) hypertension; D64.9 Anemia, unspecified; G25.81 Restless legs syndrome; M81.0 Age-related osteoporosis without current pathological fracture; Z79.899 Other long term (current) drug therapy; Z86.16 Personal history of COVID-19; Z86.711 Personal history of pulmonary embolism; Z86.73 Personal history of transient ischemic attack (TIA), and cerebral infarction without residual deficits
CPT/HCPCS: 36415; 80053; 83615; 85025; 99214

== ENCOUNTER 2022-02-06 20:12 | Emergency (ER) | payer MEDICARE, SELFPAY ==
[2022-02-06 20:16] VITALS: BP 171/98; PULSE 93; RESP 16; TEMP 36.4; O2SAT 97; BMI 31.8
[2022-02-06 20:20] VITALS: BP 171/98; PULSE 93; RESP 16; TEMP 36.6; O2SAT 97
--- NOTE | 2022-02-06 20:26 | XRR_ITS ---
PROCEDURE INFORMATION: Exam: XR Left Shoulder Exam date and time: 02/06/2022 8:46 PM Age: 76 years old Clinical indication: Pain; Left; Prior surgery; Surgery date: 6+ months; Surgery type: Lt shoulder TECHNIQUE: Imaging protocol: XR Left shoulder. Views: 2 or more views. COMPARISON: CT angio chest PE protcl [id number] 04/13/2021 8:58 AM FINDINGS: Bones/joints: There are postsurgical changes with open reduction internal fixation of the distal left clavicle and also of left scapular fracture. Old healed left rib fractures also identified. No acute fracture is demonstrated. Soft tissues: Normal. XR/XR shoulder LT min 2V* [id number] IMPRESSION: Stable postsurgical changes in the left clavicle and scapula.
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
[2022-02-06] MEDS: HYDROcodone-acetaminophen 5-325 mg Tablet 1 TAB PO (20:38)
== END 2022-02-06 21:30 | disposition home or self-care (01) ==
PROVIDERS: Emergency Provider Nurse Practitioner Family; PCP Family Medicine
DX: M75.42 Impingement syndrome of left shoulder (principal); M25.512 Pain in left shoulder
CPT/HCPCS: 73030; 99283

== ENCOUNTER 2022-03-08 11:04 | Oncology outpatient (recurring) (ONCR) | payer MEDICARE, SELFPAY ==
[2022-03-08 09:59] LABS: Basophils # 0.1 10^3/uL (0.0-0.1); Basophils % 1.4 %; Eosinophils # 0.2 10^3/uL (0.0-0.8); Eosinophils % 1.9 %; Hematocrit 43.3 % (37.0-47.0); Hemoglobin 14.7 g/dL (11.5-15.3); Lymphocytes # 3.4 10^3/uL (0.8-4.8); Lymphocytes % 42.6 %; Mean Corpuscular HGB Conc 33.9 g/dL (30.0-36.0); Mean Corpuscular Hemoglobin 36.8 pg (28.0-34.0); Mean Corpuscular Volume 108.5 fl (81-99); Monocytes # 0.9 10^3/uL (0.2-0.9); Monocytes % 11.3 %; Neutrophils # 3.42 10^3/uL (1.8-7.7); Neutrophils % 42.2 %; Nucleated Red Blood Cells % 0 %; Platelet Count 508 10^3/cmm (130-400); Red Blood Count 3.99 10^6/uL (4.1-5.3); Red Cell Distribution Width 14.1 % (12.1-15.1); White Blood Count 8.1 10^3/uL (4.0-10.0)
[2022-03-08 10:35] LABS: Alanine Aminotransferase 13 U/L (0-33); Alkaline Phosphatase 74 IU/L (35-105); Anion Gap 13.3 (5-19); Aspartate Amino Transferase 23 U/L (0-32); Blood Urea Nitrogen 15 mg/dL (8-23); Calcium 8.4 mg/dL (8.5-10.5); Carbon Dioxide 23 mmol/L (22-29); Chloride 104 mmol/L (98-107); Globulin 3.2 g/dL (1.3-4.6); Glucose 95 mg/dL (65-115); Lactate Dehydrogenase 202 U/L (135-214); Osmolality Calculated 283 mOsm/kg (285-295); Potassium 4.3 mmol/L (3.5-5.1); Sodium 136 mmol/L (136-145); Total Bilirubin 0.5 mg/dL (0.15-1.2); Total Protein 7.2 g/dL (6.6-8.7)
== END 2022-03-16 23:59 | disposition home or self-care (01) ==
PROVIDERS: PCP Family Medicine; Visit Provider Internal Medicine Medical Oncology
DX: D45 Polycythemia vera (principal); Z79.899 Other long term (current) drug therapy; Z79.82 Long term (current) use of aspirin
CPT/HCPCS: 36415; 80053; 83615; 85025; 99214

== ENCOUNTER 2022-06-12 11:07 | Oncology outpatient (recurring) (ONCR) | payer MEDICARE, SELFPAY ==
[2022-06-12 11:08] LABS: Basophils # 0.1 10^3/uL (0.0-0.1); Eosinophils # 0.1 10^3/uL (0.0-0.8); Eosinophils % 1.5 %; Hematocrit 44.3 % (37.0-47.0); Hemoglobin 14.6 g/dL (11.5-15.3); Lymphocytes # 2.8 10^3/uL (0.8-4.8); Lymphocytes % 34.7 %; Mean Corpuscular Hemoglobin 36.5 pg (28.0-34.0); Mean Corpuscular Volume 110.8 fl (81-99); Mean Platelet Volume 10.9 fL (7.4-10.4); Monocytes # 0.8 10^3/uL (0.2-0.9); Monocytes % 9.5 %; Neutrophils # 4.28 10^3/uL (1.8-7.7); Neutrophils % 52.6 %; Nucleated Red Blood Cells % 0 %; Platelet Count 558 10^3/cmm (130-400); Red Cell Distribution Width 15.6 % (12.1-15.1); White Blood Count 8.1 10^3/uL (4.0-10.0)
[2022-06-12 11:25] LABS: Alanine Aminotransferase 15 U/L (0-33); Albumin Level 3.8 g/dL (3.5-5.2); Alkaline Phosphatase 89 U/L (35-105); Anion Gap 15.1 (5-19); Aspartate Amino Transferase 14 U/L (0-32); Blood Urea Nitrogen 19 mg/dL (8-23); Carbon Dioxide 25 mmol/L (22-29); Chloride 107 mmol/L (98-107); Globulin 3.1 g/dL (1.3-4.6); Glucose 108 mg/dL (65-115); Lactate Dehydrogenase 205 U/L (135-214); Osmolality Calculated 299 mOsm/kg (285-295); Potassium 4.1 mmol/L (3.5-5.1); Sodium 143 mmol/L (136-145); Total Bilirubin 0.3 mg/dL (0.15-1.2); Total Protein 6.9 g/dL (6.6-8.7)
== END 2022-06-16 23:59 | disposition home or self-care (01) ==
PROVIDERS: PCP Family Medicine; Visit Provider Internal Medicine Medical Oncology
DX: D45 Polycythemia vera (principal); Z79.899 Other long term (current) drug therapy; R39.15 Urgency of urination; R35.0 Frequency of micturition; L98.9 Disorder of the skin and subcutaneous tissue, unspecified
CPT/HCPCS: 36415; 80053; 83615; 85025; 99214

== ENCOUNTER → 2022-11-25 17:41 | Outpatient (BNVA) | payer MEDICARE, SELFPAY | PROVIDERS: PCP Family Medicine; Visit Provider Family Medicine | DX: R39.9 Unspecified symptoms and signs involving the genitourinary system (principal) | CPT/HCPCS: 81000 ==

== ENCOUNTER 2023-01-04 14:02 | Oncology outpatient (recurring) (ONCR) | payer MEDICARE, SELFPAY ==
[2023-01-04 14:22] LABS: Basophils # 0.1 10^3/uL (0.0-0.1); Basophils % 0.8 %; Eosinophils # 0.2 10^3/uL (0.0-0.8); Eosinophils % 1.6 %; Hematocrit 43.6 % (37.0-47.0); Hemoglobin 14.3 g/dL (11.5-15.3); Lymphocytes # 2.9 10^3/uL (0.8-4.8); Lymphocytes % 31.8 %; Mean Corpuscular HGB Conc 32.8 g/dL (30.0-36.0); Mean Corpuscular Hemoglobin 37.3 pg (28.0-34.0); Mean Corpuscular Volume 113.8 fl (81-99); Mean Platelet Volume 10.5 fL (7.4-10.4); Monocytes # 0.9 10^3/uL (0.2-0.9); Monocytes % 9.9 %; Neutrophils % 54.8 %; Nucleated Red Blood Cells % 0 %; Platelet Count 461 10^3/cmm (130-400); Red Blood Count 3.83 10^6/uL (4.1-5.3); Red Cell Distribution Width 14.9 % (12.1-15.1); White Blood Count 9.1 10^3/uL (4.0-10.0)
[2023-01-04 14:39] LABS: Alanine Aminotransferase 12 U/L (0-33); Albumin Level 3.8 g/dL (3.5-5.2); Alkaline Phosphatase 76 U/L (35-105); Anion Gap 16.2 (5-19); Aspartate Amino Transferase 21 U/L (0-32); Blood Urea Nitrogen 15 mg/dL (8-23); Carbon Dioxide 25 mmol/L (22-29); Chloride 105 mmol/L (98-107); Globulin 2.9 g/dL (1.3-4.6); Glucose 122 mg/dL (65-115); Lactate Dehydrogenase 224 U/L (135-214); Osmolality Calculated 296 mOsm/kg (285-295); Potassium 4.2 mmol/L (3.5-5.1); Sodium 142 mmol/L (136-145); Total Bilirubin 0.3 mg/dL (0.15-1.2); Total Protein 6.7 g/dL (6.6-8.7)
== END 2023-01-14 23:59 | disposition home or self-care (01) ==
PROVIDERS: PCP Family Medicine; Visit Provider Internal Medicine Medical Oncology
DX: D45 Polycythemia vera (principal); M79.605 Pain in left leg; Z79.899 Other long term (current) drug therapy; Z86.73 Personal history of transient ischemic attack (TIA), and cerebral infarction without residual deficits
CPT/HCPCS: 36415; 80053; 83615; 85025; 99214

== ENCOUNTER 2023-01-12 14:48 | Outpatient (CLI) | payer MEDICARE, SELFPAY ==
--- NOTE | 2023-01-12 15:45 | USCV_ITS ---
Jessi Williamson Age: 77 Gender: F : 1945 Exam Date: 01/12/2023 16:05 Ordering Phys: Howard Oliver MD Technologist: Kelly Benson Exam Location: [facility] [place] Indication: left leg pain HISTORY: patient C/O pain mostly in left foot extending to left calf and inner upper thigh PROCEDURES: Venous duplex imaging was performed in only the left lower extremity. In addition, the posterior tibial and peroneal trunk were evaluated. On the left side, the common femoral, superficial femoral, profunda femoral, popliteal, posterior tibial, greater saphenous veins, and the peroneal trunk were identified and interrogated in the standard fashion. These veins were found to be easily compressible with spontaneous blood flow. No evidence of insufficiency or thrombus noted. FINDINGS: No DVT, superficial thrombus or Goetz Cyst is seen at this time. CONCLUSIONS No evidence of left lower extremity DVT. Miguel Cerda MD (Electronically Signed) Final Date: 12 January 2023 16:47 S
== END 2023-01-12 14:49 | disposition home or self-care (01) ==
LOC: RAD 15:10
PROVIDERS: PCP Family Medicine; Visit Provider Internal Medicine Medical Oncology
DX: D45 Polycythemia vera (principal); M79.605 Pain in left leg
CPT/HCPCS: 93971

== ENCOUNTER → 2023-02-05 11:02 | Outpatient (BNVA) | payer MEDICARE, SELFPAY | PROVIDERS: PCP Family Medicine; Visit Provider Podiatrist Foot & Ankle Surgery | DX: M79.672 Pain in left foot (principal); M76.72 Peroneal tendinitis, left leg | CPT/HCPCS: 99213 ==

== ENCOUNTER 2023-03-12 11:16 | Outpatient (CLI) | payer MEDICARE, SELFPAY ==
--- NOTE | 2023-03-12 11:40 | MR_ITS ---
WS: [id number] EXAMINATION: MR ankle LT wo con* [id number] ORDER DATE: 03/12/2023 12:04 PM COMPARISON: None. HISTORY: CHRONIC PAIN OF LEFT ANKLE CONTRAST: None. TECHNIQUE: Axial proton density fat sat, axial T1, sagittal proton density, sagittal STIR, coronal T2 fat sat, and coronal T1 sequences performed. FINDINGS: Distal Achilles appears intact. Small joint effusion. Subcutaneous edema in the lower leg and about t he LEFT foot and ankle. 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 Normal bone marrow signal i n the talar dome. No evidence of avascular necrosis in the talar dome. Normal talocalcaneal articulat ion. Normal calcaneus and cuboid. ATFL appears intact. PTFL appears intact. Calcaneofibular ligament appears intact. Tenosynovitis along the peroneal tendon sheath. Split tear involving the peroneal brevis. Peroneal lo ngus appears intact. Tenosynovitis along the tibialis posterior. Tenosynovitis flexor hallucis longu s and tibialis anterior. Normal navicular. Normal talar navicular articulation. Medial and lateral ma lleolus appear normal. No avulsion fractures. Normal deltoid ligament. Normal plantar aponeurosis. MR/MR ankle LT wo con* [id number] IMPRESSION: 1. Mild degenerative arthritis at the ankle mortise. Normal medial and lateral malleolus. 2. Diffuse soft tissue edema lower leg and ankle and visualized foot. No drain able fluid collections. 3. Small joint effusion. 4. ATFL appears intact. Calcaneofibular ligament appears intact. 5. Tenosynovitis involving the peroneal tendon sheaths. Split tear involving t he peroneal brevis. 6. Tenosynovitis involving the tibialis anterior, tibialis posterior, and flex or hallucis longus. 7. Distal Achilles appears intact. 8. No other acute findings.
== END 2023-03-12 11:17 | disposition home or self-care (01) ==
LOC: RAD 11:18
PROVIDERS: PCP Family Medicine; Visit Provider Nurse Practitioner Family
DX: M19.072 Primary osteoarthritis, left ankle and foot (principal); M25.472 Effusion, left ankle; M65.872 Other synovitis and tenosynovitis, left ankle and foot
CPT/HCPCS: 73721

== ENCOUNTER 2023-06-06 09:41 | Emergency (ER) | payer MEDICARE, MEDICAID, SELFPAY ==
[2023-06-06] VITALS (7 sets, daily range): BP systolic 133–159; BP diastolic 51–84; PULSE 83–105; RESP 14–18; TEMP 37.1; O2SAT 93–97; BMI 30.1
--- NOTE | 2023-06-06 10:12 | XR_ITS ---
WS: [id number] XR ribs RT mn 3V w [id number] [id number] REASON FOR EXAM: anteriolateral lower rib pain/post fall FINDINGS: No right rib fracture identified. No acute chest abnormality. IMPRESSION: No acute abnormality.
--- NOTE | 2023-06-06 10:13 | W.ED.FALL ---
HPI - Fall General: Chief Complaint: Shortness of Breath/Dyspnea Stated Complaint: abd pain/sob Time Seen by Provider: 06/06/23 10:01 Source: patient Mode of arrival: ambulatory Limitations: no limitations History of Present Illness: Patient is a very nice 78-year-old female presents to ED today with complaint of right-sided rib/chest pain following a fall. Patient states approximately a week ago she slipped in her bathtub and struck the right side of her ribs/chest on the edge of the bathtub. Patient states she tried to treat conservatively at home knowing there was not much to do for rib fractures anyway however pain over the past week or so has progressively worsened and she is now complaining of shortness of breath and increasing pain with inspiration. She denies lightheadedness or dizziness. She denies abdominal pain. MD complaint: fall Onset (ago): day(s) Fall from: standing Fall witnessed: no Place fall occurred: home Loss of consciousness: None Prolonged down time: no Symptoms prior to fall: none Context: tripped/slipped Location of injury: chest Associated symptoms-after fall: Reports chest pain (R chest wall pain); Denies abdominal pain, headache(s), hematuria, lightheadedness or neck pain Review of Systems Const: Denies: fever(s), chills, body aches, fatigue or malaise Card: Reports: chest pain (R chest wall pain); Denies: palpitations, irregular heart rhythm, edema, swelling of feet/ankles, lightheadedness, syncope, pre-syncope, dyspnea on exertion, orthopnea, leg pain with exertion or acrocyanosis Resp: Reports: dyspnea and pain on inspiration; Denies: productive cough, non-productive cough, wheezing, stridor, change in phlegm color, hemoptysis or chest congestion GI: Denies: abdominal pain, nausea, vomiting or diarrhea : Denies: flank pain or hematuria Musc: Denies: neck pain, back pain, extremity pain or joint pain Skin/Breast: Denies: rash Neuro: Denies: headache(s), numbness in extremities, weakness in extremities, sensory changes or dizziness PFS ED PFSH: Medical History History of CVA (cerebrovascular accident) History of nonmelanoma skin cancer Polycythemia vera Tinea pedis Surgical History H/O tubal ligation Hx of bone graft Hx of cholecystectomy Hx of hysterectomy Hx of splenectomy Family History Mother CAD (coronary artery disease) Father CAD (coronary artery disease) Brother Cancer Denies family history of Stroke Social History Smoking and tobacco status: never smoked Alcohol intake: never Substance/Drug Use: never Current occupational status: retired Physical Exam Const: COMMON NORMALS: no acute distress, average body habitus, patient oriented x3, no limitations, healthy appearing, alert and well nourished HENMT: COMMON NORMALS: normocephalic and atraumatic HEAD & SCALP: normal to inspection, normocephalic and atraumatic Neck/C-Spine: GENERAL: Yes normal visual inspection CERVICAL SPINE: No Cervical spine tenderness Chest: OTHER: TTP anteriolateral lower R ribs w/o crepitus; she is exquisitely tender even with very light palpation Resp: COMMON NORMALS: normal respiratory effort and clear to auscultation bilaterally AUSCULTATION: clear to auscultation bilaterally Cardio: COMMON NORMALS: regular rate and regular rhythm RATE: regular rate RHYTHM: regular rhythm GI: COMMON NORMALS: Normal to inspection, nondistended, normoactive bowel sounds present, Soft to palpation, No hepatosplenomegaly present and no masses INSPECTION: Yes normal to inspection AUSCULTATION: Yes normoactive bowel sounds PALPATION: Yes Soft to palpation, Yes Tenderness to palpation present (GI) Details: RUQ, No Guarding due to palpation present (GI), No Rigid due to palpation and Yes No hepatosplenomegaly present : COMMON NORMALS: Yes no CVA tenderness BLADDER/KIDNEY EXAM: Yes no CVA tenderness Back/Pelvis: COMMON NORMALS: no CVA tenderness, thoracic and lumbar spine normal to inspection, no thoracic nor lumbar tenderness and thoraco-lumbar ROM normal Extremity: COMMON NORMALS: normal to inspection GENERAL: Yes normal exam except as noted Neuro: FANG COMA SCALE: document GCS findings Fang coma scale eye opening: Spontaneous [place] coma scale verbal response: Orientated Fang coma scale motor response: Obey commands Fang coma scale total score: 15 COMMON NORMALS: patient oriented x3, moves all extremities, no focal motor deficits and no sensory deficits noted SENSORIUM/ORIENTATION: Yes alert Skin: NARRATIVE SKIN EXAM: small amount of ecchymosis to R lateral chest wall Course Vital Signs: Vital signs: Vital Signs Temperature 98.8 F 06/06/23 09:56 Pulse Rate 105 H 06/06/23 12:50 Respiratory Rate 18 06/06/23 12:50 Blood Pressure 133/51 06/06/23 12:44 Pulse Oximetry 93 06/06/23 12:50 Oxygen Delivery Me thod Room Air 06/06/23 12:50 MDM - Fall Medical Decision Making Patient's XR is normal. Due to her exquisite tenderness and worsening discomfort decision was made for CT imaging. It does not show any visualized rib fractures. She does have a tiny right pleural effusion with right basilar infiltrates or atelectasis. We will place her on antibiotic coverage and we will give her an incentive spirometer to go home with. We will write her for some pain medication. Return ED precautions given. All radiology interpretation(s) finalized by discharge Discharge Plan Discharge Patient Disposition: Home Clinical Impression: Contusion of rib on right side Qualifiers: Encounter type: initial encounter Qualified Code(s): S20.211A - Contusion of right front wall of thorax, initial encounter Condition: Stable Prescriptions: New hydrocodone-acetaminophen 5-325 mg tablet 1 tab PO Q6H PRN (Reason: pain) Qty: 14 0RF amoxicillin-pot clavulanate 875-125 mg tablet 1 tab PO BID Qty: 14 0RF No Action aspirin 325 mg tablet 325 mg PO DAILY cholecalciferol (vitamin D3) 25 mcg (1,000 unit) capsule 25 mcg PO DAILY hydroxyurea 500 mg capsule See Rx Instructions .ROUTE .COMPLEX Qty: 120 3RF Dose Instruction: TAKE 2 CAPSULES BY MOUTH ON SUNDAY, SUNDAY, AND SUNDAY. THEN TAKE 1 CAPSULE BY MOUTH ON ALL OTHER DAYS. Rx Instructions: TAKE 2 CAPSULES BY MOUTH ON SUNDAY, SUNDAY, AND SUNDAY. THEN TAKE 1 CAPSULE BY MOUTH ON ALL OTHER DAYS. Discharge Orders: Discharge ED (Routine); Ordered 06/06/23 Ordered By: Stacy Ventura Referrals: Tory Thomas DO [Primary Care Provider] - Patient Instructions: Opioid Safety, Pain Management Activity Restrictions/Additional Instructions: As discussed you need to be using your incentive spirometer 1-2 times every hour. He need to return to the emergency department for worsening or uncontrollable chest/rib pain, worsening shortness of breath or difficulty breathing, fevers, or any other concerns you may have. Otherwise I would like you to follow-up with your primary care provider at the end of the week/early next week for reevaluation/recheck. Coding Level of Care Code ED It Sales Representative for Jennifer Wong
[2023-06-06] MEDS: HYDROmorphone 1 mg/mL INJ 1 mL 0.5 MG SUBCUT (10:31)
--- NOTE | 2023-06-06 10:51 | CT_ITS ---
WS: [id number] CT CHEST TECHNIQUE: Noncontrast CT of the chest with coronal and sagittal reformatted images. CLINICAL INFORMATION: R rib trauma/severe pain/sob COMPARISON: 04/13/2021 DLP: [id number] scans at [facility] use at least one of these dose optimization techniques: automated e xposure control; mA and/or kV adjustment per patient size (includes targeted exams where dose is matc hed to clinical indication); or iterative reconstruction. FINDINGS: No visualized RIGHT rib fractures. No visualized LEFT rib fractures. Bibasal atelectasis. Tiny RIGHT pleural effusion with slight patchy infiltrate/atelectasis in the RIGHT greater than LEFT lower lobes . Hepatomegaly. Cholecystectomy clips. Normal GE junction. Fatty atrophy of the pancreas. Adrenal gland s are normal. Spleen is not visualized. Small splenules in the LEFT upper quadrant. Prior postoperati ve changes LEFT scapula and clavicle. IMPRESSION: 1. No visualized rib fractures 2. Tiny RIGHT pleural effusion with RIGHT basilar infiltrates or atelectasis.
[2023-06-06] MEDS: HYDROmorphone 1 mg/mL INJ 1 mL 0.5 MG IM (11:54)
== END 2023-06-06 12:58 | disposition home or self-care (01) ==
PROVIDERS: Emergency Provider Physician Assistant; PCP Family Medicine
DX: S20.211A Contusion of right front wall of thorax, initial encounter (principal); Z79.82 Long term (current) use of aspirin; Z86.73 Personal history of transient ischemic attack (TIA), and cerebral infarction without residual deficits; W18.2XXA Fall in (into) shower or empty bathtub, initial encounter
CPT/HCPCS: 71101; 71250; 96372; 99284; J1170

== ENCOUNTER → 2023-06-18 09:03 | Outpatient (BNVA) | payer MEDICARE, MEDICAID, SELFPAY | PROVIDERS: PCP Family Medicine; Visit Provider Nurse Practitioner Family | DX: R39.9 Unspecified symptoms and signs involving the genitourinary system (principal); R10.84 Generalized abdominal pain | CPT/HCPCS: 81000 ==

== ENCOUNTER 2023-06-25 11:18 | Outpatient (CLI) | payer MEDICARE, MEDICAID, SELFPAY | END 2023-06-25 11:19 | disposition home or self-care (01) | LOC: SPT 11:19 | PROVIDERS: PCP Family Medicine; Visit Provider Podiatrist Foot & Ankle Surgery | DX: Z46.89 Encounter for fitting and adjustment of other specified devices (principal); M76.72 Peroneal tendinitis, left leg | CPT/HCPCS: 20550; 97760; L4397 ==

== ENCOUNTER 2023-08-03 08:09 | Oncology outpatient (recurring) (ONCR) | payer MEDICARE, MEDICAID, SELFPAY ==
[2023-08-03 08:31] LABS: Basophils # 0.1 10^3/uL (0.0-0.1); Basophils % 0.8 %; Eosinophils # 0.1 10^3/uL (0.0-0.8); Eosinophils % 1.2 %; Hematocrit 46.2 % (36-47); Lymphocytes # 2.3 10^3/uL (0.8-4.8); Lymphocytes % 25.4 %; Mean Corpuscular HGB Conc 32.9 g/dL (30-55); Mean Corpuscular Hemoglobin 37.1 pg (27-33); Mean Corpuscular Volume 112.7 fl (85-98); Mean Platelet Volume 10.8 fL (7.4-10.4); Monocytes # 0.6 10^3/uL (0.2-0.9); Monocytes % 6.5 %; Neutrophils # 5.82 10^3/uL (1.8-7.7); Neutrophils % 65.3 %; Nucleated Red Blood Cells % 0 %; Platelet Count 552 10^3/cmm (157-399); Red Cell Distribution Width 15.2 % (12.1-15.1); White Blood Count 8.92 10^3/uL (3.29-11.43)
[2023-08-03 08:42] VITALS: BP 139/82; PULSE 94; RESP 16; TEMP 36.7; O2SAT 95
[2023-08-03 08:51] LABS: Alanine Aminotransferase 17 U/L (0-33); Alkaline Phosphatase 79 U/L (35-105); Anion Gap 12.9 (5-19); Aspartate Amino Transferase 17 U/L (0-32); Blood Urea Nitrogen 18 mg/dL (8-23); Calcium 9.1 mg/dL (8.5-10.5); Carbon Dioxide 26 mmol/L (22-29); Chloride 107 mmol/L (98-107); Globulin 3.1 g/dL (1.3-4.6); Glucose 130 mg/dL (65-115); Lactate Dehydrogenase 184 U/L (135-214); Osmolality Calculated 298 mOsm/kg (285-295); Potassium 3.9 mmol/L (3.5-5.1); Sodium 142 mmol/L (136-145); Total Bilirubin 0.6 mg/dL (0.15-1.2); Total Protein 7.1 g/dL (6.6-8.7)
== END 2023-08-16 23:59 | disposition home or self-care (01) ==
PROVIDERS: Internal Medicine; PCP Family Medicine; Visit Provider Internal Medicine Medical Oncology
DX: D45 Polycythemia vera (principal); Z79.899 Other long term (current) drug therapy; R39.15 Urgency of urination; R35.0 Frequency of micturition; L98.9 Disorder of the skin and subcutaneous tissue, unspecified; D75.1 Secondary polycythemia
CPT/HCPCS: 36415; 80053; 83615; 85025; 99214

== ENCOUNTER 2023-09-24 11:44 | Oncology outpatient (recurring) (ONCR) | payer MEDICARE, MEDICAID, SELFPAY ==
[2023-09-24 11:40] VITALS: BP 152/89; PULSE 84; RESP 16; TEMP 36.3; O2SAT 98
[2023-09-24 11:47] LABS: Basophils # 0.1 10^3/uL (0.0-0.1); Eosinophils # 0.2 10^3/uL (0.0-0.8); Eosinophils % 1.8 %; Hematocrit 43.2 % (36-47); Lymphocytes % 32.8 %; Mean Corpuscular HGB Conc 33.3 g/dL (30-55); Mean Corpuscular Hemoglobin 37.1 pg (27-33); Mean Corpuscular Volume 111.3 fl (85-98); Mean Platelet Volume 10.4 fL (7.4-10.4); Monocytes % 10.4 %; Neutrophils # 4.92 10^3/uL (1.8-7.7); Neutrophils % 53.3 %; Nucleated Red Blood Cells % 0 %; Platelet Count 473 10^3/cmm (157-399); Red Blood Count 3.88 10^6/uL (3.85-5.65); Red Cell Distribution Width 15.8 % (12.1-15.1); White Blood Count 9.23 10^3/uL (3.29-11.43)
[2023-09-24 12:12] LABS: Alanine Aminotransferase 62 U/L (0-33); Albumin Level 3.9 g/dL (3.5-5.2); Alkaline Phosphatase 115 U/L (35-105); Aspartate Amino Transferase 21 U/L (0-32); Blood Urea Nitrogen 21 mg/dL (8-23); Calcium 9.3 mg/dL (8.5-10.5); Carbon Dioxide 26 mmol/L (22-29); Chloride 106 mmol/L (98-107); Glucose 82 mg/dL (65-115); Osmolality Calculated 294 mOsm/kg (285-295); Sodium 141 mmol/L (136-145); Total Bilirubin 0.4 mg/dL (0.15-1.2); Total Protein 6.9 g/dL (6.6-8.7)
[2023-09-24 12:14] LABS: Anion Gap 13.2 (5-19); Potassium 4.2 mmol/L (3.5-5.1)
== END 2023-10-17 23:59 | disposition home or self-care (01) ==
PROVIDERS: Internal Medicine; PCP Family Medicine; Visit Provider Internal Medicine Medical Oncology
DX: Z53.9 Procedure and treatment not carried out, unspecified reason; D45 Polycythemia vera; Z79.899 Other long term (current) drug therapy
CPT/HCPCS: 36415; 80053; 85025; 99213

== ENCOUNTER 2023-11-07 12:31 | Oncology outpatient (recurring) (ONCR) | payer MEDICARE, MEDICAID, SELFPAY ==
[2023-11-07 12:50] LABS: Basophils % 0.1 %; Hematocrit 40.6 % (36-47); Lymphocytes # 1.3 10^3/uL (0.8-4.8); Lymphocytes % 10.7 %; Mean Corpuscular HGB Conc 34.2 g/dL (30-55); Mean Corpuscular Hemoglobin 38.2 pg (27-33); Mean Corpuscular Volume 111.5 fl (85-98); Mean Platelet Volume 10.3 fL (7.4-10.4); Monocytes # 0.7 10^3/uL (0.2-0.9); Monocytes % 5.7 %; Neutrophils # 9.74 10^3/uL (1.8-7.7); Neutrophils % 82.2 %; Nucleated Red Blood Cells % 0 %; Platelet Count 479 10^3/cmm (157-399); Red Blood Count 3.64 10^6/uL (3.85-5.65); Red Cell Distribution Width 15.9 % (12.1-15.1); White Blood Count 11.83 10^3/uL (3.29-11.43)
[2023-11-07 13:04] LABS: Alanine Aminotransferase 12 U/L (0-33); Albumin Level 3.7 g/dL (3.5-5.2); Alkaline Phosphatase 82 U/L (35-105); Anion Gap 16.7 (5-19); Aspartate Amino Transferase 32 U/L (0-32); Blood Urea Nitrogen 20 mg/dL (8-23); Calcium 8.2 mg/dL (8.5-10.5); Carbon Dioxide 19 mmol/L (22-29); Chloride 108 mmol/L (98-107); Globulin 3.3 g/dL (1.3-4.6); Glucose 173 mg/dL (65-115); Osmolality Calculated 295 mOsm/kg (285-295); Potassium 4.7 mmol/L (3.5-5.1); Sodium 139 mmol/L (136-145); Total Bilirubin 0.3 mg/dL (0.15-1.2)
[2023-11-07 13:28] LABS: Lactate Dehydrogenase 207 U/L (135-214)
== END 2023-11-15 23:59 | disposition home or self-care (01) ==
PROVIDERS: Internal Medicine; PCP Family Medicine; Visit Provider Internal Medicine Medical Oncology
DX: D45 Polycythemia vera; Z79.899 Other long term (current) drug therapy; Z79.64 Long term (current) use of myelosuppressive agent; Z86.73 Personal history of transient ischemic attack (TIA), and cerebral infarction without residual deficits
CPT/HCPCS: 36415; 80053; 83615; 85025; 99214

== ENCOUNTER → 2023-12-21 09:35 | Outpatient (BNVA) | payer MEDICARE, MEDICAID, SELFPAY | PROVIDERS: PCP Family Medicine; Visit Provider Nurse Practitioner Family | DX: L57.0 Actinic keratosis (principal); D22.62 Melanocytic nevi of left upper limb, including shoulder; L57.8 Other skin changes due to chronic exposure to nonionizing radiation; L81.4 Other melanin hyperpigmentation; L82.1 Other seborrheic keratosis; Z85.828 Personal history of other malignant neoplasm of skin | CPT/HCPCS: 17000; 99213 ==

== ENCOUNTER → 2024-01-30 10:55 | Outpatient (BNVA) | payer MEDICARE, MEDICAID, SELFPAY | PROVIDERS: PCP Family Medicine; Visit Provider Podiatrist Foot & Ankle Surgery | DX: M25.572 Pain in left ankle and joints of left foot (principal); G89.29 Other chronic pain; M76.72 Peroneal tendinitis, left leg; M21.372 Foot drop, left foot; M25.372 Other instability, left ankle | CPT/HCPCS: 99213 ==

== ENCOUNTER → 2024-11-27 15:16 | Outpatient (BNVA) | payer MEDICARE, MEDICAID, SELFPAY | PROVIDERS: PCP Family Medicine; Visit Provider Nurse Practitioner Family | DX: D04.4 Carcinoma in situ of skin of scalp and neck (principal); L82.1 Other seborrheic keratosis; L57.8 Other skin changes due to chronic exposure to nonionizing radiation; L81.4 Other melanin hyperpigmentation; Z08 Encounter for follow-up examination after completed treatment for malignant neoplasm; Z85.828 Personal history of other malignant neoplasm of skin; L82.0 Inflamed seborrheic keratosis; L53.8 Other specified erythematous conditions; R20.8 Other disturbances of skin sensation; L29.89 Other pruritus; Z78.9 Other specified health status; R58 Hemorrhage, not elsewhere classified; L57.0 Actinic keratosis | CPT/HCPCS: 17000; 17110; 99214 ==

== ENCOUNTER 2025-06-18 10:22 | Outpatient (RCR) | payer MEDICARE, MEDICAID, SELFPAY | END 2025-07-17 23:59 | disposition home or self-care (01) | LOC: SPT 10:22 | PROVIDERS: PCP Family Medicine; Visit Provider Family Medicine | DX: M76.822 Posterior tibial tendinitis, left leg (principal); M79.672 Pain in left foot | CPT/HCPCS: 97110; 97150; 97161 ==

== ENCOUNTER 2025-07-18 05:00 | Outpatient (RCR) | payer MEDICAID, MEDICARE, SELFPAY | END 2025-08-16 23:59 | disposition home or self-care (01) | LOC: SPT 05:00 | PROVIDERS: PCP Family Medicine; Visit Provider Family Medicine | DX: M76.822 Posterior tibial tendinitis, left leg (principal); M79.672 Pain in left foot | CPT/HCPCS: 97110 ==